=== PATIENT | female | born 1975 | race Caucasian/White ===

== ENCOUNTER 2019-05-30 23:12 | Inpatient (IN) | payer BC, OTHER ==
[2019-05-31] MEDS ORDERED: NA CHLORIDE 0.9% 2,000 ML ONE (00:09)
[2019-05-31] MEDS ORDERED: VANCOMYCIN 1 GM/VIAL ONE (00:09)
[2019-05-31] MEDS ORDERED: MORPHINE 4 MG/ML SYR ONE (00:09)
[2019-05-31] MEDS ORDERED: NA CHLORIDE 0.9% 250 ML ONE ×2 (00:09→03:04)
[2019-05-31] MEDS ORDERED: CEFTRIAXONE/SWI 1gm 1 GM/10 ML SYR ONE (00:09)
[2019-05-31 00:12] LABS: Absolute Lymphocytes (CBC) 0.4 K/uL (0.7-4.9); Basophils % 0.1 % (0-1.3); Hematocrit 35.3 % (36.0-45.0); Lymphocytes % 3.1 % (15.3-44.8); MPV 8.6 fL (7.6-11.3); RBC Red Blood Cell Count 4.35 M/uL (3.86-4.86)
[2019-05-31 00:15] LABS: Protime INR 1.23
[2019-05-31 00:27] LABS: Albumin 3.3 g/dL (3.4-5.0); Bilirubin Direct 0.2 mg/dL (0-0.2); Bilirubin Total 0.6 mg/dL (0.2-1.0); Potassium 3.1 mmol/L (3.5-5.1); Protein, Total 7.4 g/dL (6.4-8.2)
[2019-05-31] MEDS ORDERED: POTASSIUM 25 MEQ EFFERV TAB ONE (00:34)
[2019-05-31] MEDS ORDERED: ENOXAPARIN 40 MG/0.4 ML SQ ONE (00:34)
[2019-05-31] MEDS ORDERED: MORPHINE 4 MG/ML SYR IV PRN (00:35)
[2019-05-31] MEDS ORDERED: ONDANSETRON 4 MG/2 ML VIAL IV PRN (00:35)
[2019-05-31] MEDS ORDERED: ENOXAPARIN 100 MG/ML SYR SQ ONE (00:36)
--- NOTE | 2019-05-31 00:38 | ER ---
Nurse's Notes [facility] Name: Munira Kim Age: 43 yrs Sex: Female : 1975 Arrival Date: 05/30/2019 Time: 23:17 Bed 23 Private MD: Imelda Pitmtan R Diagnosis: Cellulitis of left lower limb;Lymphedema, not elsewhere classified;Hypokalemia Presentation: 05/30 23:39 Presenting complaint: Patient states: I HAVE LYMPH EDEMA AND I GET CELLULITIS EVERY rv ONCE IN A WHILE. COUPLE OF WEEKS AGO I GOT A SHOT FROM A DOCTOR'S CLINIC AND IT GOT BETTER. TODAY I WOKE UP NOT FEELING GOOD, LEFT LEG IS RED AND SWOLLEN, HAVING FEVER ALL DAY. Transition of care: patient was not received from another setting of care. Onset of symptoms was May 30, 2019 at 08:00. Risk Assessment: Do you want to hurt yourself or someone else? Patient reports no desire to harm self or others. Initial Sepsis Screen: Does the patient meet any 2 criteria? No. Patient's initial sepsis screen is negative. Does the patient have a suspected source of infection? No. Patient's initial sepsis screen is negative. Care prior to arrival: None. 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 - Social history:: Smoking status: Patient/guardian denies using tobacco, never smoked. - Ebola Screening: : No symptoms or risks identified at this time. Screenin:43 Abuse screen: Denies threats or abuse. Denies injuries from another. Nutritional rv screening: No deficits noted. Tuberculosis screening: No symptoms or risk factors identified. Fall Risk No fall in past 12 months (0 pts). Secondary diagnosis (15 points) impaired mobility, No IV (0 pts). Ambulatory Aid- None/Bed Rest/Nurse Assist (0 pts). Gait- Impaired (20 pts.). Mental Status- Oriented to own ability (0 pts). Total Talavera Fall Scale indicates No Risk (0-24 pts). Assessment: 23:42 General: Appears in no apparent distress. uncomfortable, Behavior is calm, cooperative. rv Pain: Complains of pain in left LOWER LEG Pain radiates to LEFT THIGH. Neuro: Level of Consciousness is awake, alert, obeys commands, Oriented to person, place, time, situation, Cardiovascular: Patient's skin is warm and dry. Respiratory: Airway is patent. GI: No signs and/or symptoms were reported involving the gastrointestinal system. : No signs and/or symptoms were reported regarding the genitourinary system. EENT: No signs and/or symptoms were reported regarding the EENT system. Derm: Skin temperature is warm. Musculoskeletal: Swelling present in left leg. Vital Signs: 23:41 BP 110 / 77; Pulse 100; Resp 18; Temp 99.8; Pulse Ox 100% ; Weight 117.93 kg; Height 5 rv ft. 7 in. (170.18 cm); 05/31 00:30 BP 112 / 61; Pulse 95; Resp 16; Pulse Ox 100% on R/A; rv 01:51 BP 108 / 49; Pulse 96; Resp 17; Pulse Ox 100% on R/A; rv 05/30 23:41 Body Mass Index 40.72 (117.93 kg, 170.18 cm) rv ED Course: 05/30 23:17 Patient arrived in ED. es 23:17 Imelda Pittman MD is Private Physician. es 23:22 [facility] Hall [facility]C [facility]. snw 23:22 Sung Lynch MD is Attending Physician. snw 23:30 Edmond Corado RN is Primary Nurse. rv 23:41 Triage completed. rv 23:46 Patient has correct armband on for positive identification. Placed in gown. Bed in low rv position. Call light in reach. Side rails up X 1. Adult w/ patient. Pulse ox on. NIBP on. 23:46 Patient placed in the treatment room, on a stretcher, on pulse oximetry, Patient rv notified of wait time. 23:55 Inserted saline lock: 20 gauge in right antecubital area, using aseptic technique. rv Blood collected. 23:55 Initial lab(s) drawn, by me, sent to lab. First set of blood cultures drawn by me. rv 05/31 00:13 Chest Single View XRAY In Process Unspecified. EDMS 00:20 Second set of blood cultures drawn by me. rv 00:36 Kerwni Mendoza MD is Hospitalizing Provider. snw 01:52 No provider procedures requiring assistance completed. Patient admitted, IV remains in rv place. Administered Medications: 00:20 Drug: Rocephin 1 grams Route: IV; Rate: calculated rate; Site: right antecubital; rv 00:26 Follow up: IV Status: Completed infusion rv 00:25 Drug: NS 0.9% 1000 ml Route: IV; Rate: 125 ml/hr; Site: right antecubital; rv 01:53 Follow up: IV Status: IV converted to saline lock rv 00:25 Drug: morphine 4 mg {Note: RASS 0.} Route: IVP; Site: right antecubital; rv 01:07 Follow up: Response: No adverse reaction rv 01:09 Follow up: Response: RASS: Alert and Calm (0) rv 00:26 Drug: vancoMYCIN 1 grams Route: IVPB; Infused Over: 2 hrs; Site: right antecubital; rv 01:53 Follow up: IV Status: Completed infusion rv 00:26 Drug: NS 0.9% 1000 ml Route: IV; Rate: 1000 ml; Site: right antecubital; rv 01:53 Follow up: IV Status: Completed infusion rv 00:35 CANCELLED (other intervention used): Lovenox 40 mg Sub-Q once snw 00:40 Drug: Lovenox 100 mg Route: Sub-Q; Site: right lower abdomen; rv 01:06 Follow up: Response: No adverse reaction rv 00:41 Drug: Potassium Effervescent Tablet 50 mEq Route: PO; rv 01:07 Follow up: Response: No adverse reaction rv Outcome: 00:37 Decision to Hospitalize by Provider. snw 01:52 Admitted to Tele accompanied by tech, via wheelchair, room 420, Report called to HARDEEP jones RN 01:52 Condition: good 01:52 Instructed on the need for admit. 01:54 Patient left the ED. rv Signatures: Dispatcher [employer] Malorie Myles FNP-C WORKPLACE REHABILITATION OFFICER-Csnw Hiral Strong Ronaldo, RN RN rv
--- NOTE | 2019-05-31 00:38 | EDPHYS ---
Physician Documentation [facility] Name: Munira Kim Age: 43 yrs Sex: Female : 1975 Arrival Date: 05/30/2019 Time: 23:17 Bed 23 Private MD: Imelda Pittman R ED Physician Sung Lynch HPI: 05/30 23:51 This 43 yrs old Female presents to ER via Ambulatory with complaints of Leg snw Pain. 23:51 The patient presents with pain, swelling, redness. The complaints affect the lateral snw aspect of left calf, left calf, medial aspect of left calf, left quadriceps, left knee and left nelson. Context: The problem was sustained at home, resulted from hx of lymphedema, redness to left leg, the patient can fully bear weight, the patient is able to ambulate. Onset: The symptoms/episode began/occurred suddenly, today. Associated signs and symptoms: Pertinent positives: low grade fever, pain, redness today. Severity of symptoms: At their worst the symptoms were moderate. The patient has experienced a previous episode, last month. The patient has been recently seen by a physician: the patient's primary care provider, Dr. Pinzon. 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 - Social history:: Smoking status: Patient/guardian denies using tobacco, never smoked. - Ebola Screening: : No symptoms or risks identified at this time. ROS: 23:49 Constitutional: Negative for fever, chills, and weight loss, Eyes: Negative for injury, snw pain, redness, and discharge, ENT: Negative for injury, pain, and discharge, Neck: Negative for injury, pain, and swelling, Cardiovascular: Negative for chest pain, palpitations, and edema, Respiratory: Negative for shortness of breath, cough, wheezing, and pleuritic chest pain, Abdomen/GI: Negative for abdominal pain, nausea, vomiting, diarrhea, and constipation, Back: Negative for injury and pain, : Negative for injury, bleeding, discharge, and swelling, Skin: Negative for injury, rash, and discoloration, Neuro: Negative for headache, weakness, numbness, tingling, and seizure. 23:49 MS/extremity: Positive for erythema, tenderness, of the left leg. Exam: 23:48 Head/Face: Normocephalic, atraumatic. Eyes: Pupils equal round and reactive to light, snw extra-ocular motions intact. Lids and lashes normal. Conjunctiva and sclera are non-icteric and not injected. Cornea within normal limits. Periorbital areas with no swelling, redness, or edema. ENT: Nares patent. No nasal discharge, no septal abnormalities noted. Tympanic membranes are normal and external auditory canals are clear. Oropharynx with no redness, swelling, or masses, exudates, or evidence of obstruction, uvula midline. Mucous membranes moist. Neck: Trachea midline, no thyromegaly or masses palpated, and no cervical lymphadenopathy. Supple, full range of motion without nuchal rigidity, or vertebral point tenderness. No Meningismus. Chest/axilla: Normal chest wall appearance and motion. Nontender with no deformity. No lesions are appreciated. 23:48 Respiratory: Lungs have equal breath sounds bilaterally, clear to auscultation and percussion. No rales, rhonchi or wheezes noted. No increased work of breathing, no retractions or nasal flaring. Abdomen/GI: Soft, non-tender, with normal bowel sounds. No distension or tympany. No guarding or rebound. No evidence of tenderness throughout. Back: No spinal tenderness. No costovertebral tenderness. Full range of motion. MS/ Extremity: Pulses equal, no cyanosis. Neurovascular intact. Full, normal range of motion. Neuro: Awake and alert, GCS 15, oriented to person, place, time, and situation. Cranial nerves II-XII grossly intact. Motor strength 5/5 in all extremities. Sensory grossly intact. Cerebellar exam normal. Normal gait. Psych: Awake, alert, with orientation to person, place and time. Behavior, mood, and affect are within normal limits. 23:48 Constitutional: The patient appears alert, awake, uncomfortable. 23:48 Cardiovascular: Rate: tachycardic, Rhythm: regular, Pulses: no pulse deficits are appreciated, lymphedema bilateral lower ext. 23:48 Skin: Appearance: normal except for affected area, Color: normal in color, cellulitis, that is moderate, that is severe, well demarcated, on the left leg. Vital Signs: 23:41 BP 110 / 77; Pulse 100; Resp 18; Temp 99.8; Pulse Ox 100% ; Weight 117.93 kg; Height 5 rv ft. 7 in. (170.18 cm); 05/31 00:30 BP 112 / 61; Pulse 95; Resp 16; Pulse Ox 100% on R/A; rv 01:51 BP 108 / 49; Pulse 96; Resp 17; Pulse Ox 100% on R/A; rv 05/30 23:41 Body Mass Index 40.72 (117.93 kg, 170.18 cm) rv MDM: 05/30 23:25 Patient medically screened. [facility] [place] 23:50 Data reviewed: vital signs, nurses notes. Data interpreted: Pulse oximetry: on room air snw is 100 %. Interpretation: normal. Counseling: I had a detailed discussion with the patient and/or guardian regarding: the historical points, exam findings, and any diagnostic results supporting the discharge/admit diagnosis, lab results, radiology results, the need for further work-up and treatment in the hospital. 05/31 00:31 Physician consultation: Kerwin Mendoza MD was called at 00:31, was contacted at 00:31, snw regarding admission, to the telemetry unit. 05/30 23:44 Order name: Sed Rate; Complete Time: 01:50 snw 05/30 23:44 Order name: T\T\S; Complete Time: 01:49 snw 05/30 23:44 Order name: Basic Metabolic Panel; Complete Time: 00:28 snw 05/30 23:44 Order name: Blood Culture Adult (2) snw 05/30 23:44 Order name: CBC with Diff; Complete Time: 01:50 snw 05/30 23:44 Order name: CPK; Complete Time: 00:28 snw 05/30 23:44 Order name: Lactate; Complete Time: 00:28 snw 05/30 23:44 Order name: LFT's; Complete Time: 00:28 snw 05/30 23:44 Order name: Procalcitonin; Complete Time: 01:16 snw 05/30 23:44 Order name: Protime (+inr); Complete Time: 00:28 snw 05/30 23:44 Order name: Ptt, Activated; Complete Time: 00:28 snw 05/31 00:17 Order name: Glucose, Ancillary Testing; Complete Time: 00:21 EDMS 05/31 00:28 Order name: Manual Differential; Complete Time: 01:50 EDMS 05/31 00:31 Order name: Urine Dipstick--Ancillary (enter results); Complete Time: 01:49 cm6 05/30 23:44 Order name: Chest Single View XRAY snw 05/31 00:39 Order name: CBC with Automated Diff EDMS 05/31 00:39 Order name: CBC with Automated Diff EDMS 05/31 00:40 Order name: Comprehensive Metabolic Panel EDMS 05/31 00:40 Order name: Comprehensive Metabolic Panel EDMS 05/31 00:40 Order name: Protime (+INR) EDMS 05/31 00:40 Order name: Protime (+INR) EDMS 05/31 00:40 Order name: PTT, Activated Partial Thromb EDMS 05/31 00:40 Order name: PTT, Activated Partial Thromb EDMS 05/31 00:40 Order name: Extrem Venous W Compress Reagan EDMS 05/31 00:40 Order name: Extrem Venous W Compress Reagan EDMS 05/30 23:44 Order name: Accucheck; Complete Time: 00:03 snw 05/30 23:44 Order name: Cardiac monitoring; Complete Time: 00:03 snw 05/30 23:44 Order name: EKG - Nurse/Tech; Complete Time: 00:03 snw 05/30 23:44 Order name: IV Saline Lock - Large Bore; Complete Time: 00:03 snw 05/30 23:44 Order name: Labs collected and sent; Complete Time: 00:03 snw 05/30 23:44 Order name: O2 Per Protocol; Complete Time: 00:03 snw 05/30 23:44 Order name: O2 Sat Monitoring; Complete Time: 00:03 snw 05/30 23:44 Order name: Urine Dipstick-Ancillary (obtain specimen); Complete Time: 01:10 snw 05/31 00:39 Order name: CONS Pharmacy Consult EDMS 05/31 00:39 Order name: Heart Healthy EDMS Administered Medications: 00:20 Drug: Rocephin 1 grams Route: IV; Rate: calculated rate; Site: right antecubital; rv 00:26 Follow up: IV Status: Completed infusion rv 00:25 Drug: NS 0.9% 1000 ml Route: IV; Rate: 125 ml/hr; Site: right antecubital; rv 01:53 Follow up: IV Status: IV converted to saline lock rv 00:25 Drug: morphine 4 mg {Note: RASS 0.} Route: IVP; Site: right antecubital; rv 01:07 Follow up: Response: No adverse reaction rv 01:09 Follow up: Response: RASS: Alert and Calm (0) rv 00:26 Drug: vancoMYCIN 1 grams Route: IVPB; Infused Over: 2 hrs; Site: right antecubital; rv 01:53 Follow up: IV Status: Completed infusion rv 00:26 Drug: NS 0.9% 1000 ml Route: IV; Rate: 1000 ml; Site: right antecubital; rv 01:53 Follow up: IV Status: Completed infusion rv 00:35 CANCELLED (other intervention used): Lovenox 40 mg Sub-Q once snw 00:40 Drug: Lovenox 100 mg Route: Sub-Q; Site: right lower abdomen; rv 01:06 Follow up: Response: No adverse reaction rv 00:41 Drug: Potassium Effervescent Tablet 50 mEq Route: PO; rv 01:07 Follow up: Response: No adverse reaction rv Disposition: 05/31/19 00:37 Hospitalization ordered by Kerwin Mendoza for Inpatient Admission. Preliminary diagnosis are Cellulitis of left lower limb, Lymphedema, not elsewhere classified, Hypokalemia. - Bed requested for Telemetry/MedSurg (Inpatient). - Status is Inpatient Admission. rv - Condition is Stable. - Problem is new. - Symptoms have worsened. UTI on Admission? No Addendum: 06/01/2019 08:57 Co-signature as Attending Physician, Sung Lynch MD I agree with the assessment and c palma plan of care. Signatures: Dispatcher [employer] Sung Sylvester MD MD cha Therrien, Shelly, MOLD CLEANER-C MOLD CLEANER-Quinnw Elvia Storm, RN RN Edmond Corado RN RN rv Corrections: (The following items were deleted from the chart) 05/31 00:35 00:31 Lovenox 40 mg Sub-Q once ordered. snw snw 00:35 00:35 Lovenox 40 mg Sub-Q once ordered. snw snw 01:36 00:37 Hospitalization Ordered by Kerwin Mendoza MD for Inpatient Admission. Preliminary cg diagnosis is Cellulitis of left lower limb; Lymphedema, not elsewhere classified; Hypokalemia. Bed requested for Telemetry/MedSurg (Inpatient). Status is Inpatient Admission. Condition is Stable. Problem is new. Symptoms have worsened. UTI on Admission? No. snw 01:38 01:36 05/31/2019 00:37 Hospitalization Ordered by Kerwin Mendoza MD for Inpatient cg Admission. Preliminary diagnosis is Cellulitis of left lower limb; Lymphedema, not elsewhere classified; Hypokalemia. Bed requested for Telemetry/MedSurg (Inpatient). Status is Inpatient Admission. Condition is Stable. Problem is new. Symptoms have worsened. UTI on Admission? No. cg 01:54 01:38 05/31/2019 00:37 Hospitalization Ordered by Kerwin Mendoza MD for Inpatient rv Admission. Preliminary diagnosis is Cellulitis of left lower limb; Lymphedema, not elsewhere classified; Hypokalemia. Bed requested for Telemetry/MedSurg (Inpatient). Status is Inpatient Admission. Condition is Stable. Problem is new. Symptoms have worsened. UTI on Admission? No. cg
[2019-05-31 01:48] LABS: Urine Blood NEGATIVE (NEG); Urine Glucose NEGATIVE (NEG); Urine Protein 2+ (NEG)
[2019-05-31 01:50] LABS: Blood Morphology Comment NOT SEEN (NOT SEEN); Platelet Estimate ADEQ
[2019-05-31 02:30] VITALS: BMI 40.4
[2019-05-31] MEDS ORDERED: VANCOMYCIN/NS 1 gm 1 GM/250 ML BAG IVPB SCH ×2 (02:45→03:00)
[2019-05-31] MEDS ORDERED: VANCOMYCIN 500 MG/VIAL ONE (03:03)
[2019-05-31] MEDS ORDERED: WATER FOR INJ,STERILE 10 ML ONE (03:05)
[2019-05-31] MEDS: VANCOMYCIN 500 MG/VIAL ONE ×3 (03:18→03:19)
[2019-05-31] MEDS: WATER FOR INJ,STERILE 10 ML ONE (03:18)
[2019-05-31] MEDS: NA CHLORIDE 0.9% 1,000 ML IV SCH ×3 (03:18→21:45)
[2019-05-31] MEDS ORDERED: AMPICILLIN/SULBACT 3 GM in NA CHLORIDE 0.9% 100 ML IVPB SCH ×2 (06:00→12:00)
[2019-05-31] MEDS ORDERED: AMPICILLIN/SULBACTAM 3GM/VIAL ONE (06:16)
[2019-05-31] MEDS ORDERED: NA CHLORIDE 0.9% 100 ML IV ONE (06:25)
--- NOTE | 2019-05-31 07:19 | P.HP ---
Certification for Inpatient Patient admitted to: Inpatient With expected LOS: >2 Midnights Patient will require the following post-hospital care: None Practitioner: I am a practitioner with admitting privileges, knowledge of patient current condition, hospital course, and medical plan of care. Services: Services provided to patient in accordance with Admission requirements found in Title 42 Section 412.3 of the Code of Federal Regulations Patient History Date of Service: 05/31/19 Reason for admission: Cellulitis History of Present Illness: Pt is a 43yo who was admitted to the hospital with cellulitis of the left lower extremity. Pt has a h/o of lymphedema. she has had prior cellulitis of the left leg but she has not had this happen in many years. She woke up with significant erythema and came to the ER. In the emergency room, it was felt she had a cellulitis of the left lower extremity. Plan to get a Doppler in the morning. She was given Lovenox last night, and depending on the Doppler study will see if we need to just continue with DVT prophylaxis or full-dose Lovenox. Patient will be admitted for IV antibiotic therapy. Allergies meperidine HCl [From Demerol] Adverse Reaction (Verified 01/23/13 18:35) Nausea/Vomiting Home Medications: Amitriptyline [Elavil*] 100 mg PO DAILY 05/31/19 Triamterene/Hydrochlorothiazid [Triamterene-Hctz 37.5-25 mg Tb] 1 tab PO DAILY 05/31/19 - Past Medical/Surgical History Has patient received pneumonia vaccine in the past: No Diabetic: No -: lymphedema -: cholecystectomy -: weight loss sx - Family History Father Medical History: Heart disease, Stroke Mother Medical History: Heart disease, Hypertension Sister Medical History: Heart disease - Social History Smoking Status: Never smoker Alcohol use: Yes CD- Drugs: No Caffeine use: Yes Place of Residence: Home Review of Systems 10-point ROS is otherwise unremarkable Physical Examination - Vital Signs Temperature: 97.9 F Blood Pressure: 97/50 Pulse: 94 Respirations: 18 Pulse Ox (%): 95 - Physical Exam General: Alert, In no apparent distress, Oriented x3 HEENT: Atraumatic, PERRLA, Mucous membr. moist/pink, EOMI, Sclerae nonicteric Neck: Supple, 2+ carotid pulse no bruit, No LAD, Without JVD or thyroid abnormality Respiratory: Clear to auscultation bilaterally, Normal air movement Cardiovascular: Regular rate/rhythm, Normal S1 S2 Gastrointestinal: Normal bowel sounds, Soft and benign, Non-distended, No tenderness Musculoskeletal: Swelling, Erythema, Tenderness Integumentary: No rashes, Tenderness/swelling, Erythema, Warmth Neurological: Normal gait, Normal speech, Normal strength at 5/5 x4 extr, Normal tone, Sensation intact, Cranial nerves 3-12 intact, Normal affect Lymphatics: No axilla or inguinal lymphadenopathy - Studies Laboratory Data (last 24 hrs) 05/30/19 23:55: PT 14.4 H, INR 1.23, APTT 29.0 05/30/19 23:55: Sodium 134 L, Potassium 3.1 L, BUN 13, Creatinine 0.99, Glucose 126 H, Total Bilirubin 0.6, AST 23, ALT 23, Alkaline Phosphatase 76 05/30/19 23:55: WBC 14.0 H, Hgb 11.5 L, Hct 35.3 L, Plt Count 160 Assessment & Plan - Problems (Diagnosis) (1) Lymphedema Current Visit: Yes Status: Acute (2) Cellulitis of left lower extremity Current Visit: Yes Status: Acute - Plan 1. Continue with IV antibiotic 2. Treat with anti-inflammatory as well 3. Doppler of the left lower extremity to rule out DVT 4. Gentle IV hydration 5. Monitor CBC 6. Strict blood sugar monitoring 7. Pain control 8. GI and DVT prophylaxis Discharge Plan: Home Plan to discharge in: Greater than 2 days - Advance Directives Does patient have a Living Will: No Does patient have a Durable POA for Healthcare: No - Code Status/Comfort Care Code Status Assessed: Yes Code Status: Full Code Critical Care: No Time Spent Managing PTS Care (In Minutes): 45
[2019-05-31] MEDS ORDERED: NA CHLORIDE 0.9% 250 ML IV PRN (07:49)
[2019-05-31] MEDS ORDERED: NA CHLORIDE 0.9% 250 ML IV ONE (07:50)
[2019-05-31] MEDS ORDERED: HYDROCORTISONE SUC 100 MG INJ IV ONE (08:00)
[2019-05-31] MEDS: ACETAMINOPHEN 500 MG TAB PO PRN ×2 (08:19→17:54)
[2019-05-31] MEDS ORDERED: HYDROCODONE/APAP 5/325 MG TAB PO PRN (10:44)
--- NOTE | 2019-05-31 10:47 | P.PN ---
Subjective Date of Service: 05/31/19 Chief Complaint: Cellulitis Subjective: Improving (Patient is improving still having some pain and swelling redness in the left leg) Review of Systems Unremarkable Physical Examination - Vital Signs Temperature: 97.9 F Blood Pressure: 97/50 Pulse: 94 Respirations: 18 Pulse Ox (%): 95 - Physical Exam General: Alert, In no apparent distress, Oriented x3 Respiratory: Clear to auscultation bilaterally Cardiovascular: Edema Integumentary: Other (Patient has redness and swelling of the left leg patient has lymphedema the erythema extends above the left) - Studies Laboratory Data (last 24 hrs) 05/30/19 23:55: PT 14.4 H, INR 1.23, APTT 29.0 05/30/19 23:55: Sodium 134 L, Potassium 3.1 L, BUN 13, Creatinine 0.99, Glucose 126 H, Total Bilirubin 0.6, AST 23, ALT 23, Alkaline Phosphatase 76 05/30/19 23:55: WBC 14.0 H, Hgb 11.5 L, Hct 35.3 L, Plt Count 160 Assessment & Plan - Problems (Diagnosis) (1) Cellulitis of left lower extremity Current Visit: Yes Status: Acute Plan: Patient admitted with cellulitis of the left lower extremity blood cultures are pending change to Rocephin continue with vancomycin leg elevation hydrocodone for pain relief consider discharge home on clindamycin 1 stable in the white count is declining slightly low blood pressure you with IV fluids
--- NOTE | 2019-05-31 11:05 | RAD REPORT ---
EXAM DESCRIPTION: RAD - Chest Single View - 05/31/2019 12:05 am CLINICAL HISTORY: FEVER Chest pain. COMPARISON: No comparisons FINDINGS: Portable technique limits examination quality. Calcified granuloma is seen in the left mid lung. The lungs are otherwise clear. The heart is normal in size. No displaced fractures.Axillary node dissection clips are present. IMPRESSION: No acute intrathoracic process suspected.
[2019-05-31] MEDS: CEFTRIAXONE/SWI 1gm 1 GM/10 ML SYR IVP SCH (11:53)
[2019-05-31] MEDS ORDERED: VANCOMYCIN 2 GM in NA CHLORIDE 0.9% 500 ML IVPB SCH (13:00)
[2019-05-31] MEDS: VANCOMYCIN 2 GM in NA CHLORIDE 0.9% 500 ML IVPB SCH (13:27)
--- NOTE | 2019-05-31 19:45 | RAD REPORT ---
EXAM DESCRIPTION: US - Extrem Venous W Compress Reagan - 05/31/2019 7:32 pm CLINICAL HISTORY: DVT Bilateral leg edema and swelling. COMPARISON: No comparisons TECHNIQUE: Real-time sonographic interrogation of the left and right lower extremity deep venous sys tems was performed. FINDINGS: Normal compressibility, flow augmentation, phasic flow and spontaneous flow is identified in both the left and right lower extremity deep venous systems. IMPRESSION: No sonographic evidence of left or right lower extremity deep venous thrombosis.
--- NOTE | 2019-05-31 19:53 | EKG ---
Test Date: 2019-05-31 Test Time: 00:02:37 Epic Analyst: TELMAT MEASUREMENT RESULTS: Intervals: Rate: 97 RI: 132 QRSD: 84 QT: 340 QTc: 431 [place]: P: 49 RI: 132 QRS: 50 T: 48 INTERPRETIVE STATEMENTS: Normal sinus rhythm Normal ECG No previous ECG available for comparison Electronically Signed On 05-31-19 19:52:47 CDT by Vasile Mcclain
[2019-06-01] MEDS: NA CHLORIDE 0.9% 1,000 ML IV SCH (03:40)
[2019-06-01 06:02] LABS: Absolute Lymphocytes (CBC) 0.7 K/uL (0.7-4.9); Basophils % 0.2 % (0-1.3); Hematocrit 29.5 % (36.0-45.0); Lymphocytes % 11.9 % (15.3-44.8)
[2019-06-01 06:12] LABS: Protime INR 1.04
[2019-06-01] MEDS: VANCOMYCIN 2 GM in NA CHLORIDE 0.9% 500 ML IVPB SCH (06:21)
[2019-06-01 06:25] LABS: Albumin 2.5 g/dL (3.4-5.0); Bilirubin Total 0.3 mg/dL (0.2-1.0); Potassium 3.3 mmol/L (3.5-5.1); Protein, Total 6.1 g/dL (6.4-8.2)
[2019-06-01] MEDS: AMITRIPTYLINE 50 MG TAB PO SCH (08:05)
[2019-06-01] MEDS: CEFTRIAXONE/SWI 1gm 1 GM/10 ML SYR IVP SCH (08:06)
[2019-06-01] MEDS ORDERED: CEFTRIAXONE 1 GM/NS 50 ML 1 GM/50 ML BAG IV SCH (09:00)
--- NOTE | 2019-06-01 10:54 | P.PN ---
Subjective Date of Service: 06/01/19 Primary Care Provider: Dr. Santo Chief Complaint: Cellulitis Subjective: Improving (Cellulitis to the left lower extremity improved.) Physical Examination - Vital Signs Temperature: 97.4 F Blood Pressure: 95/67 Pulse: 76 Respirations: 20 Pulse Ox (%): 98 - Physical Exam General: Alert, In no apparent distress, Oriented x3, Cooperative HEENT: Atraumatic Neck: Supple Respiratory: Clear to auscultation bilaterally, Normal air movement Cardiovascular: Normal pulses, Regular rate/rhythm Gastrointestinal: Normal bowel sounds, Soft and benign, Non-distended, No tenderness, No masses, No rebound, No guarding Integumentary: Other (Erythema to the left lower extremity below the knee improved. Chronic lymphedema noted bilateral.) Neurological: Normal speech, Normal strength at 5/5 x4 extr, Normal tone, Normal affect - Studies Medications List Reviewed: Yes Assessment & Plan Discharge Plan: Home Plan to discharge in: 24 Hours Physician Review Additional Text: Impression: Left lower extremity cellulitis with chronic lymphedema Acute renal injury with hypokalemia Anemia likely of chronic disease Obesity, BMI 40 Plan: Left lower extremity cellulitis with chronic lymphedema: Will continue with IV antibiotic therapy. Cellulitis has improved. Patient with chronic lymphedema. Patient would benefit with compression stockings as an outpatient. Will recommend evaluation by lymphedema clinic as an outpatient. Anticipate discharge in the next 24-48 hr. with clinical improvement. I will turn the service over to Dr. Hernandez tomorrow. I will go over the plan of care with her. Acute renal injury with hypokalemia: Dc IV fluids. His renal function is back to baseline. Continue to monitor closely. Electrolyte protocol in place. Anemia likely of chronic disease: Will check iron and B12 studies. Will monitor closely. Obesity, BMI 40: Lifestyle modification education provided. Time Spent Managing Pts Care (In Minutes): 55
[2019-06-01 12:26] LABS: Ferritin 78.2 ng/mL (8-388)
[2019-06-01] MEDS ORDERED: ENOXAPARIN 40 MG/0.4 ML SQ SCH (17:00)
[2019-06-02] MEDS: VANCOMYCIN 2 GM in NA CHLORIDE 0.9% 500 ML IVPB SCH (01:34)
[2019-06-02 06:26] LABS: Absolute Lymphocytes (CBC) 1.1 K/uL (0.7-4.9); Basophils % 0.3 % (0-1.3); Hematocrit 28.7 % (36.0-45.0); MPV 8.5 fL (7.6-11.3); RBC Red Blood Cell Count 3.47 M/uL (3.86-4.86)
[2019-06-02 06:37] LABS: BUN Blood Urea Nitrogen 9 mg/dL (7-18); Bicarbonate 28 mmol/L (21-32); Glucose Level 81 mg/dL (74-106); Potassium 3.6 mmol/L (3.5-5.1); Sodium Level 142 mmol/L (136-145)
[2019-06-02] MEDS: AMITRIPTYLINE 50 MG TAB PO SCH (09:22)
[2019-06-02] MEDS: CEFTRIAXONE/SWI 1gm 1 GM/10 ML SYR IVP SCH (09:22)
[2019-06-02 09:30] VITALS: O2SAT 100
--- NOTE | 2019-06-02 16:09 | P.DS ---
Admission Date: 05/31/19 Discharge Date: 06/02/19 Primary Care Provider: Dr. Santo Disposition: ROUTINE DISCHARGE Discharge Condition: GOOD Reason for Admission: Cellulitis - Problems (1) Cellulitis of left lower extremity Current Visit: Yes Status: Acute (2) Lymphedema Current Visit: Yes Status: Acute Brief History of Present Illness: Pt is a 43yo who was admitted to the hospital with cellulitis of the left lower extremity. Pt has a h/o of lymphedema. she has had prior cellulitis of the left leg but she has not had this happen in many years. She woke up with significant erythema and came to the ER. In the emergency room, it was felt she had a cellulitis of the left lower extremity. Plan to get a Doppler in the morning. She was given Lovenox last night, and depending on the Doppler study will see if we need to just continue with DVT prophylaxis or full-dose Lovenox. Patient will be admitted for IV antibiotic therapy. Hospital Course: Overall during the hospital stay patient remained stable. Patient was admitted to the hospital for left lower extremity cellulitis most likely secondary to lymphedema chronic. Patient was started on IV antibiotics here in the hospital. Had marked improvement in her symptoms. Patient is felt like was also elevated. Cultures were collected. Cultures remained negative while here in the hospital. Patient cellulitis also had marked improvement and thus she was discharged home under stable condition on p.o. doxycycline. Patient was asked to follow up with lymphedema clinic in about 1-2 days post discharge. Patient was also asked to wear lymphedema stockings to help with the swelling as well. Patient demonstrate understanding and thus she was discharged home under stable condition Vital Signs/Physical Exam: Temp Pulse Resp BP Pulse Ox 97.7 F 91 H 20 109/63 99 06/02/19 12:00 06/02/19 12:00 06/02/19 12:00 06/02/19 12:00 06/02/19 12:00 General: Alert, In no apparent distress HEENT: Atraumatic, PERRLA, EOMI Neck: Supple, JVD not distended Respiratory: Clear to auscultation bilaterally, Normal air movement Cardiovascular: Regular rate/rhythm, Normal S1 S2 Gastrointestinal: Normal bowel sounds, No tenderness Musculoskeletal: Swelling, Erythema, Tenderness Integumentary: No rashes Neurological: Normal speech, Normal tone, Normal affect Lymphatics: No axilla or inguinal lymphadenopathy Laboratory Data at Discharge: WBC 4.8 K/uL (4.3-10.9) D 06/02/19 05:54 Hgb 9.4 g/dL (12.0-15.0) L 06/02/19 05:54 Hct 28.7 % (36.0-45.0) L 06/02/19 05:54 Plt Count 159 K/uL (152-406) 06/02/19 05:54 PT 12.2 SECONDS (9.5-12.5) 06/01/19 05:30 INR 1.04 06/01/19 05:30 APTT 28.3 SECONDS (24.3-36.9) 06/01/19 05:30 Sodium 142 mmol/L (136-145) 06/02/19 05:54 Potassium 3.6 mmol/L (3.5-5.1) 06/02/19 05:54 BUN 9 mg/dL (7-18) 06/02/19 05:54 Creatinine 0.69 mg/dL (0.55-1.3) 06/02/19 05:54 Glucose 81 mg/dL (74-106) 06/02/19 05:54 Magnesium 2.0 mg/dL (1.8-2.4) 06/02/19 05:54 Total Bilirubin 0.3 mg/dL (0.2-1.0) 06/01/19 05:30 AST 14 U/L (15-37) L 06/01/19 05:30 ALT 19 U/L (12-78) 06/01/19 05:30 Alkaline Phosphatase 67 U/L (45-117) 06/01/19 05:30 Home Medications: Amitriptyline [Elavil*] 100 mg PO DAILY 05/31/19 Triamterene/Hydrochlorothiazid [Triamterene-Hctz 37.5-25 mg Tb] 1 tab PO DAILY 05/31/19 Doxycycline Monohydrate 100 mg PO BID #28 tablet 06/02/19 New Medications: Doxycycline Monohydrate 100 mg PO BID #28 tablet Patient Discharge Instructions: Please f.u with Lymphedema clinic in 1 to 2 week post discharge. New medication. Doxycycline 100mg BID Diet: Regular Activity: Ad gordo
[2019-06-02 17:08] VITALS: BP 109/66; TEMP 98.1
== END 2019-06-02 16:03 | disposition home or self-care (01) | DRG 603 ==
LOC: ER 23:12 → ERHOLD 05-31 00:35 → 4TH 05-31 01:45
PROVIDERS: ADMIT Hospitalist; ATTEND Hospitalist
DX: L03.116 Cellulitis of left lower limb (principal); N17.9 Acute kidney failure, unspecified; Z68.41 Body mass index [BMI] 40.0-44.9, adult; I89.0 Lymphedema, not elsewhere classified; E87.6 Hypokalemia; D64.9 Anemia, unspecified; E66.9 Obesity, unspecified
CPT/HCPCS: 36415; 71045; 80048; 80053; 80076; 80202; 81003; 82550; 82607; 82728; 82947; 83540; 83605; 83735; 84145; 84466; 85025; 85610; 85652; 85730; 86850; 86900; 86901; 87040; 93005; 93970; 96365; 96372; 96375; 97116; 97161; 99285; J0295; J0696; J1650; J1720; J3370; J7030; J7040

== ENCOUNTER 2019-06-12 10:35 | Observation (INO) | payer OTHER ==
[2019-06-12 11:46] LABS: Absolute Lymphocytes (CBC) 1.4 K/uL (0.7-4.9); Basophils % 0.5 % (0-1.3); Hematocrit 34.4 % (36.0-45.0); Lymphocytes % 20.4 % (15.3-44.8); MPV 8.1 fL (7.6-11.3); RBC Red Blood Cell Count 4.22 M/uL (3.86-4.86)
[2019-06-12 12:23] LABS: Albumin 3.6 g/dL (3.4-5.0); Bilirubin Total 0.5 mg/dL (0.2-1.0); Potassium 3.1 mmol/L (3.5-5.1); Protein, Total 8.2 g/dL (6.4-8.2)
--- NOTE | 2019-06-12 13:21 | EDPHYS ---
Physician Documentation [facility] Name: Munira Kim Age: 43 yrs Sex: Female : 1975 Arrival Date: 06/12/2019 Time: 10:37 Bed 16 Private MD: Imelda Pittman R ED Physician Sung Lynch HPI: 06/12 11:06 This 43 yrs old Female presents to ER via Wheelchair with complaints of Leg jmm Swelling. 11:06 The patient presents with pain, that is acute, swelling. Onset: The symptoms/episode jmm began/occurred today. Modifying factors: The symptoms are alleviated by nothing. the symptoms are aggravated by nothing. This is a 43 year old female with a history of lymphedema that presents to the ED with complaints of left lower extremity swelling and redness beginning this morning. Patient discharged from hospital with cellulitis approx 1 week ago. Patient sent home with doxycycline. Erythema began today. . 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 - Social history:: Smoking status: . - Ebola Screening: : Patient denies travel to an Ebola-affected area in the 21 days before illness onset. ROS: 11:06 Constitutional: Negative for fever, chills, and weight loss, Cardiovascular: Negative jmm for chest pain, palpitations, and edema, Respiratory: Negative for shortness of breath, cough, wheezing, and pleuritic chest pain. 11:06 MS/extremity: Positive for erythema, swelling. 11:06 All other systems are negative. Exam: 11:06 Constitutional: This is a well developed, well nourished patient who is awake, alert, jmm and in no acute distress. Head/Face: atraumatic. Eyes: EOMI, no conjunctival erythema appreciated ENT: Moist Mucus Membranes Neck: Trachea midline, Supple Chest/axilla: Normal chest wall appearance and motion. Cardiovascular: Regular rate and rhythm. No edema appreciated Respiratory: Normal respirations, no respiratory distress appreciated Abdomen/GI: Non distended, soft Back: Normal ROM 11:06 Musculoskeletal/extremity: swelling noted to the lower extremities bilaterally, compartments are soft, NVI. 11:06 Skin: erythema and induration appreciated at the left lower extremity. 11:06 Neuro: Orientation: is normal, Mentation: is normal, Memory: is normal. 11:06 Psych: Behavior/mood is pleasant, cooperative. Vital Signs: 11:04 BP 119 / 78; Pulse 84; Resp 16 S; Temp 98.4(O); Pulse Ox 100% on R/A; Weight 117.93 kg aa5 (R); Height 5 ft. 7 in. (170.18 cm) (R); Pain 6/10; 11:38 BP 119 / 78; Pulse 83; Resp 17; Pulse Ox 99% on R/A; tw2 12:49 BP 109 / 73; Pulse 88; Resp 17; Pulse Ox 97% on R/A; tw2 13:37 BP 107 / 71; Pulse 108; Resp 17; Pulse Ox 99% on R/A; tw2 11:04 Body Mass Index 40.72 (117.93 kg, 170.18 cm) aa5 MDM: 11:06 Patient medically screened. olivier 13:19 Data reviewed: vital signs, nurses notes. Counseling: I had a detailed discussion with [facility] the patient and/or guardian regarding: the historical points, exam findings, and any diagnostic results supporting the discharge/admit diagnosis, lab results, the need for further work-up and treatment in the hospital. ED course: I discussed the patient with Dr. Arrieta whom accepted admission. . 06/12 11:21 Order name: CBC with Diff; Complete Time: 12:30 [facility] 06/12 11:21 Order name: CMP; Complete Time: 12:30 [facility] 06/12 11:21 Order name: ESR; Complete Time: 12:30 [facility] 06/12 11:21 Order name: Blood Culture Adult (2) [facility] 06/12 11:21 Order name: Lactate; Complete Time: 12:21 [facility] 06/12 11:21 Order name: Procalcitonin; Complete Time: 12:41 [facility] 06/12 11:21 Order name: Saline Lock; Complete Time: 11:38 [facility] Administered Medications: No medications were administered Disposition: 16:23 Co-signature as Attending Physician, Sung Lynch MD I agree with the assessment and olivier plan of care. Disposition: 06/12/19 13:21 Hospitalization ordered by Blair Arrieta for Observation. Preliminary diagnosis is Cellulitis of left lower limb. - Bed requested for Telemetry/MedSurg (observation). - Status is Observation. tw2 - Condition is Stable. - Problem is an acute exacerbation. - Symptoms are unchanged. UTI on Admission? No Signatures: Dispatcher [employer] EDMS Sung Lynch MD MD cha Mickail, Joel, PA PA jmm Calderon, Audri, LEXI RN aa5 Autumn Delarosa RN RN tw2 Ching Todd Corrections: (The following items were deleted from the chart) 13:22 13:21 Hospitalization Ordered by Blair Arrieta DO for Observation. Preliminary eb diagnosis is Cellulitis of left lower limb. Bed requested for Telemetry/MedSurg (observation). Status is Observation. Condition is Stable. Problem is an acute exacerbation. Symptoms are unchanged. UTI on Admission? No. demetra 13:34 13:22 06/12/2019 13:21 Hospitalization Ordered by Blair Arrieta DO for Observation. eb Preliminary diagnosis is Cellulitis of left lower limb. Bed requested for Telemetry/MedSurg (observation). Status is Observation. Condition is Stable. Problem is an acute exacerbation. Symptoms are unchanged. UTI on Admission? No. eb 14:27 13:34 06/12/2019 13:21 Hospitalization Ordered by Blair Arrieta DO for Observation. tw2 Preliminary diagnosis is Cellulitis of left lower limb. Bed requested for Telemetry/MedSurg (observation). Status is Observation. Condition is Stable. Problem is an acute exacerbation. Symptoms are unchanged. UTI on Admission? No. eb
--- NOTE | 2019-06-12 13:21 | ER ---
Nurse's Notes [facility] Name: Munira Kim Age: 43 yrs Sex: Female : 1975 Arrival Date: 06/12/2019 Time: 10:37 Bed 16 Private MD: Imelda Pittman R Diagnosis: Cellulitis of left lower limb Presentation: 06/12 11:03 Transition of care: patient was not received from another setting of care. Onset of tw2 symptoms was June 12, 2019. Risk Assessment: Do you want to hurt yourself or someone else? Patient reports no desire to harm self or others. Initial Sepsis Screen: Does the patient meet any 2 criteria? No. Patient's initial sepsis screen is negative. Does the patient have a suspected source of infection? No. Patient's initial sepsis screen is negative. Care prior to arrival: None. 11:03 Method Of Arrival: Wheelchair tw2 11:03 Acuity: EFRAIN 3 aa5 11:03 Presenting complaint: Patient states: left lower leg cellulitis. Pt states "I've had aa5 cellulitis for a while and I was admitted and it got better but just today it started getting more red again". pt reports she is currently taking antibiotics. 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 - Social history:: Smoking status: . - Ebola Screening: : Patient denies travel to an Ebola-affected area in the 21 days before illness onset. Screenin:03 Abuse screen: Denies threats or abuse. Nutritional screening: No deficits noted. tw2 Tuberculosis screening: No symptoms or risk factors identified. Fall Risk None identified. Assessment: 11:05 General: Appears in no apparent distress. obese, well groomed, Behavior is calm, tw2 cooperative, appropriate for age. Pain: Complains of pain in left leg. Neuro: Level of Consciousness is awake, alert, obeys commands, Oriented to person, place, time, situation. Cardiovascular: Heart tones S1 S2. Cardiovascular: Edema is 4+ to left midcalf and left ankle redness and swelling noted to left LE. Respiratory: Airway is patent Respiratory effort is even, unlabored, Respiratory pattern is regular, symmetrical, Breath sounds are clear bilaterally. GI: No signs and/or symptoms were reported involving the gastrointestinal system. : No signs and/or symptoms were reported regarding the genitourinary system. EENT: No signs and/or symptoms were reported regarding the EENT system. Derm: No signs and/or symptoms reported regarding the dermatologic system. Musculoskeletal: Range of motion: intact in all extremities. 11:39 Reassessment: Patient appears in no apparent distress at this time. No changes from tw2 previously documented assessment. Patient and/or family updated on plan of care and expected duration. Pain level reassessed. Patient is alert, oriented x 3, equal unlabored respirations, skin warm/dry/pink. 12:30 Reassessment: Patient appears in no apparent distress at this time. No changes from tw2 previously documented assessment. Patient and/or family updated on plan of care and expected duration. Pain level reassessed. Patient is alert, oriented x 3, equal unlabored respirations, skin warm/dry/pink. 13:37 Reassessment: Patient appears in no apparent distress at this time. No changes from tw2 previously documented assessment. Patient and/or family updated on plan of care and expected duration. Pain level reassessed. Patient is alert, oriented x 3, equal unlabored respirations, skin warm/dry/pink. Vital Signs: 11:04 BP 119 / 78; Pulse 84; Resp 16 S; Temp 98.4(O); Pulse Ox 100% on R/A; Weight 117.93 kg aa5 (R); Height 5 ft. 7 in. (170.18 cm) (R); Pain 6/10; 11:38 BP 119 / 78; Pulse 83; Resp 17; Pulse Ox 99% on R/A; tw2 12:49 BP 109 / 73; Pulse 88; Resp 17; Pulse Ox 97% on R/A; tw2 13:37 BP 107 / 71; Pulse 108; Resp 17; Pulse Ox 99% on R/A; tw2 11:04 Body Mass Index 40.72 (117.93 kg, 170.18 cm) aa5 ED Course: 10:37 Patient arrived in ED. rg4 10:38 Imelda Pittman MD is Private Physician. rg4 11:03 Autumn Delarosa, RN is Primary Nurse. tw2 11:03 Arm band placed on. tw2 11:03 Bed in low position. Call light in reach. tw2 11:05 Kwame Jett PA is PHCP. jm 11:05 Sung Lynch MD is Attending Physician. [facility] 11:08 Triage completed. aa5 11:25 Inserted saline lock: 22 gauge in left antecubital area, using aseptic technique. Blood tw2 collected. 13:20 Blair Arrieta DO is Hospitalizing Provider. [facility] 13:38 Awaiting: unsuccessful attempt to call report at this time. tw2 13:38 No provider procedures requiring assistance completed. Patient admitted, IV remains in tw2 place. Administered Medications: No medications were administered Outcome: 13:21 Decision to Hospitalize by Provider. [facility] 14:04 Admitted to Med/surg accompanied by tech, via wheelchair, room 208, Report called to tw2 LEXI Russ 14:04 Condition: stable 14:04 Instructed on the need for admit. 14:27 Patient left the ED. tw2 Signatures: Kwame Jett PA PA jmm Calderon, Audri, RN RN aa5 Autumn Delarosa, LEXI RN tw2 Fouzia Storm rg4
--- NOTE | 2019-06-12 13:32 | P.HP ---
Certification for Inpatient Patient admitted to: Observation With expected LOS: <2 Midnights Patient will require the following post-hospital care: None Practitioner: I am a practitioner with admitting privileges, knowledge of patient current condition, hospital course, and medical plan of care. Services: Services provided to patient in accordance with Admission requirements found in Title 42 Section 412.3 of the Code of Federal Regulations Patient History Date of Service: 06/12/19 Primary Care Provider: Dr. Santo Reason for admission: Recurrent left lower extremity cellulitis History of Present Illness: 43-year-old female with history of chronic lymphedema presents with recurrent left lower extremity cellulitis. Patient was actually hospitalized last week for cellulitis. Patient treated and sent home on doxycycline. Patient was discharge on 06/02/2019. She actually improved but over the last day she had noted increasing swelling, erythema to the left lower extremity. She denies any fever, chills, nausea or vomiting. No significant chest pain or shortness of breath noted. She came to the ER for further evaluation. In the ER vital signs stable. White count 7.1, hemoglobin 11.6. Lactic acid and pro calcitonin within normal range. Sodium 138, potassium 3.1, creatinine 0.86 with a GFR 71. Patient was admitted for further observation and treatment. When I saw the patient ER, she appeared stable. Erythema and swelling noted to the left lower extremity. Allergies meperidine HCl [From Demerol] Adverse Reaction (Verified 01/23/13 18:35) Nausea/Vomiting Home medications list reviewed: Yes Home Medications: Amitriptyline [Elavil*] 100 mg PO DAILY 05/31/19 Triamterene/Hydrochlorothiazid [Triamterene-Hctz 37.5-25 mg Tb] 1 tab PO DAILY 05/31/19 Doxycycline Monohydrate 100 mg PO BID #28 tablet 06/02/19 - Past Medical/Surgical History Diabetic: No -: Chronic lymphedema -: History recurrent left lower extremity cellulitis -: Obesity, BMI 40 -: Anemia of chronic disease -: Cholecystectomy -: Weight loss surgery Psychosocial/ Personal History: Patient lives at home. - Family History Father -: Heart disease, Stroke Mother -: Heart disease, Hypertension Sister -: Heart disease - Social History Smoking Status: Unknown if ever smoked Alcohol use: Yes CD- Drugs: No Caffeine use: Yes Place of Residence: Home Review of Systems General: As per HPI Eyes: Unremarkable ENT: Unremarkable Respiratory: Unremarkable Cardiovascular: Unremarkable Gastrointestinal: Unremarkable Genitourinary: Unremarkable Musculoskeletal: Pedal edema, As per HPI Integumentary: As per HPI Neurological: Unremarkable Lymphatics: Unremarkable Physical Examination - Physical Exam General: Alert, In no apparent distress, Oriented x3, Cooperative HEENT: Atraumatic, Normocephalic, EOMI Neck: Supple Respiratory: Clear to auscultation bilaterally, Normal air movement Cardiovascular: Normal pulses, Regular rate/rhythm Gastrointestinal: Normal bowel sounds, Soft and benign, Non-distended, No guarding Musculoskeletal: Other (Erythema, edema to the left lower extremity compared to the right. Patient with chronic lymphedema. Swelling and erythema noted from the foot up to the just below the knee.) Integumentary: Other (As above) Neurological: Normal speech, Normal strength at 5/5 x4 extr, Normal tone, Normal affect - Studies Laboratory Data (last 24 hrs) 06/12/19 11:25: Sodium 138, Potassium 3.1 L, BUN 13, Creatinine 0.86, Glucose 89 , Total Bilirubin 0.5, AST 17, ALT 19, Alkaline Phosphatase 107 06/12/19 11:25: WBC 7.1 D, Hgb 11.6 L, Hct 34.4 L D, Plt Count 288 D Assessment and Plan - Plan Impression: Recurrent left lower extremity cellulitis with chronic lymphedema Hypokalemia Anemia of chronic disease Obesity, BMI 40 Plan: Recurrent left lower extremity cellulitis with chronic lymphedema: Patient to be admitted for further evaluation and treatment. Will start IV vancomycin and cefepime. Will elevate leg when sitting or lying. Previous information reviewed. Previous venous Doppler negative. Will provide medication for pain. Will provide DVT prophylaxis-Lovenox. Anticipate clinical improvement over the next 24-48 hr. Likely discharge at that time. Hospital team will continue her care tomorrow. Patient will likely require dual antibiotic therapy at discharge. Will recommend lymphedema clinic evaluation as an outpatient. Hypokalemia: Will provide electrolyte protocol replacement. Will monitor closely. Anemia of chronic disease: Will monitor closely. Obesity, BMI 40: Address lifestyle modification education. Discharge Plan: Home Plan to discharge in: 48 Hours - Advance Directives Does patient have a Living Will: No Does patient have a Durable POA for Healthcare: No - Code Status/Comfort Care Code Status Assessed: Yes (Patient is full code) Time Spent Managing Pts Care (In Minutes): 55
[2019-06-12] MEDS ORDERED: TRAMADOL HCL 50 MG TAB PO PRN (15:23)
[2019-06-12] MEDS ORDERED: ACETAMINOPHEN 500 MG TAB PO PRN (15:23)
[2019-06-12] MEDS ORDERED: HYDROCODONE/APAP 7.5/325 MG TAB PO PRN (15:23)
[2019-06-12] MEDS ORDERED: ONDANSETRON 4 MG/2 ML VIAL IV PRN (15:23)
[2019-06-12 15:45] VITALS: BMI 40.7
[2019-06-12] MEDS: ENOXAPARIN 40 MG/0.4 ML SQ SCH (17:18)
[2019-06-12] MEDS: VANCOMYCIN 2 GM in NA CHLORIDE 0.9% 500 ML IVPB SCH (17:18)
[2019-06-12] MEDS ORDERED: PNEUMOCOCCAL VACCINE 0.5 ML IMVAC ONE (18:00)
[2019-06-12] MEDS ORDERED: INFLUENZA VACCINE (for 3y+) 0.5 ML DOSE IMVAC ONE (18:00)
[2019-06-12] MEDS ORDERED: CEFEPIME 1 GM/VIAL IV SCH (21:00)
[2019-06-12] MEDS: CEFEPIME/SWI 1gm 10 ML IVP SCH (21:33)
[2019-06-13] MEDS: VANCOMYCIN 2 GM in NA CHLORIDE 0.9% 500 ML IVPB SCH (04:14)
[2019-06-13 05:13] LABS: Urine Appearance CLEAR; Urine Bilirubin NEGATIVE (NEG); Urine Blood NEGATIVE (NEG); Urine Color YELLOW; Urine Glucose NEGATIVE (NEG); Urine Protein NEGATIVE (NEG); Urine Urobilinogen 0.2 mg/dL (0.2-1.0)
[2019-06-13 05:15] LABS: Urine Microscopic Reflex NO UMIC
[2019-06-13 05:45] LABS: Absolute Lymphocytes (CBC) 0.8 K/uL (0.7-4.9); Basophils % 0.6 % (0-1.3); Hematocrit 30.2 % (36.0-45.0); Lymphocytes % 13.3 % (15.3-44.8); MPV 8.4 fL (7.6-11.3); RBC Red Blood Cell Count 3.75 M/uL (3.86-4.86)
[2019-06-13 05:59] LABS: Magnesium 2.3 mg/dL (1.8-2.4); Potassium 3.4 mmol/L (3.5-5.1)
[2019-06-13] MEDS ORDERED: POTASSIUM 25 MEQ EFFERV TAB PO ONE (08:00)
[2019-06-13 08:11] VITALS: O2SAT 96
[2019-06-13] MEDS: ENOXAPARIN 40 MG/0.4 ML SQ SCH (08:59)
[2019-06-13] MEDS: CEFEPIME/SWI 1gm 10 ML IVP SCH (08:59)
[2019-06-13 12:56] VITALS: BP 109/53; TEMP 97
--- NOTE | 2019-06-13 14:04 | P.DS ---
Admission Date: 06/12/19 Discharge Date: 06/13/19 Primary Care Provider: Dr. Santo Disposition: ROUTINE DISCHARGE Discharge Condition: GOOD Reason for Admission: Recurrent left lower extremity cellulitis Brief History of Present Illness: This 43 years of age with lymphedema admitted with worsening swelling and pain on the left leg Hospital Course: Patient did well pain and swelling improved vital signs stable cultures all negative white count normal patient will be discharged home on levofloxacin in finish her doxycycline. As patient's relapsed while she was taking doxycycline blood cultures are all negative the time of discharge patient alert oriented responsive cooperative vital signs stable cardiovascular muscles normal abdomen soft extremities redness the swelling is decreased she has gross lymphedema on both her legs patient is mildly anemic and hypokalemic to follow up with the primary care physician Vital Signs/Physical Exam: Temp Pulse Resp BP Pulse Ox 97.0 F 88 16 109/53 L 98 06/13/19 12:00 06/13/19 12:00 06/13/19 12:00 06/13/19 12:00 06/13/19 12:00 Laboratory Data at Discharge: WBC 6.0 K/uL (4.3-10.9) D 06/13/19 05:29 Hgb 9.9 g/dL (12.0-15.0) L 06/13/19 05:29 Hct 30.2 % (36.0-45.0) L 06/13/19 05:29 Plt Count 232 K/uL (152-406) 06/13/19 05:29 Sodium 142 mmol/L (136-145) 06/13/19 05:29 Potassium 3.4 mmol/L (3.5-5.1) L 06/13/19 05:29 BUN 10 mg/dL (7-18) 06/13/19 05:29 Creatinine 0.84 mg/dL (0.55-1.3) 06/13/19 05:29 Glucose 82 mg/dL (74-106) 06/13/19 05:29 Magnesium 2.3 mg/dL (1.8-2.4) 06/13/19 05:29 Total Bilirubin 0.5 mg/dL (0.2-1.0) 06/12/19 11:25 AST 17 U/L (15-37) 06/12/19 11:25 ALT 19 U/L (12-78) 06/12/19 11:25 Alkaline Phosphatase 107 U/L (45-117) 06/12/19 11:25 Home Medications: Amitriptyline [Elavil*] 100 mg PO BEDTIME 05/31/19 Triamterene/Hydrochlorothiazid [Triamterene-Hctz 37.5-25 mg Tb] 2 tab PO DAILY 05/31/19 Doxycycline Monohydrate 100 mg PO BID #28 tablet 06/02/19 Levofloxacin [Levaquin] 750 mg PO DAILY #10 tablet 06/13/19 New Medications: Levofloxacin [Levaquin] 750 mg PO DAILY #10 tablet Patient Discharge Instructions: F/u with primary care 1-2 wks Diet: Regular Activity: Ad gordo
== END 2019-06-13 14:44 | disposition home or self-care (01) ==
LOC: ER 10:35 → 2ND 13:21
PROVIDERS: ADMIT Family Medicine; ATTEND Internal Medicine Sleep Medicine
DX: L03.116 Cellulitis of left lower limb (principal); I89.0 Lymphedema, not elsewhere classified; Z68.41 Body mass index [BMI] 40.0-44.9, adult; E87.6 Hypokalemia; D63.8 Anemia in other chronic diseases classified elsewhere; Z28.21 Immunization not carried out because of patient refusal
CPT/HCPCS: 36415; 80048; 80053; 81003; 83605; 83735; 84132; 84145; 85025; 85652; 87040; 99285; G0378; J0692; J1650; J7040

== ENCOUNTER 2024-11-04 18:42 | Inpatient (IN) | payer OTHER ==
--- OUTSIDE RECORDS SUMMARY | 2024-11-04 18:46 | XMS REPORT | Continuity of Care Document ---
Author Name Unknown Address [address] [facility] [address] [place] [address] [facility] Address [address] [facility] [address] [place] [address] Care Team Providers Care Repairer Handtools Name Role Phone Zain RUIZ, Wally Primary Care Physic yvette [phone] Francesca Gupta Attending Clinician [phone] FRANCESCA SCHUSTER Attending Clinician Unavail le Doctor Unassigned, [place] Attending Clinician U navailable Payers Payer Name Policy Type Policy Number Effective Date Expirati on Date Source Problems Condition Name Condition Details Condition Category Status Onset Date Resolution Date Last Treatment Date Treating Clinician Comments Source Lymphedema Lymphedema Disease Active 02-18 00:00: 00 [facility] Allergies, Adverse Reactions, Alerts Allergy Name Allergy Type Status Severity Reaction(s) Onset Date Inactive Date Treating Clinician Comments Source n Propensi ty to adverse reaction to drug Active 6-08 00:00: 00 Roque Tamayo Demerol - Oral Propensi ty to adverse reaction to drug Active 5-11 00:00: 00 Roque Tamayo Atropine -Demerol Propensi ty to adverse reaction s Active Nausea and/or Vomiting 02-18 00:00: 00 [facility] ATROPINE -DEMEROL DRUG Active N/V 02-18 00:00: 00 [facility] Demerol Propensi ty to adverse reaction to drug Active 09-21 00:00: 00 Roque Tamayo NO KNOWN ALLERGIE S Drug Class Active [facility] Social History Social Habit Start Date Stop Date Quantity Comments Source Exposure to SARS-CoV-2 (event) Not sure [facility] Tobacco use and exposure 2021-02-18 00:00:00 2021-02-18 00:00:00 Never used [facility] Sex Assigned At 1975 00:00:00 1975 00:00:00 [facility] Smoking Status Start Date Stop Date Source Unknown [facility] Medications Ordered Medication Name Filled Medication Name Start Date Stop Date Current Medication? Ordering Clinician Indication Dosage Frequency Signature (SIG) Comments Components Source gentamicin 0.3 % eye drops 09-28 00:00: 00 Yes 1% Roque Tamayo cefuroxime axetil 500 mg tablet 09-28 00:00: 00 Yes 1mg Roque Tamayo amitriptyli ne 50 mg tablet 08-06 00:00: 00 Yes 1mg Roque Tamayo Maxalt 10 mg tablet 08-06 00:00: 00 Yes 1mg Roque Tamayo amitriptyli ne 50 mg tablet 2023-08 00:00: 00 Yes 1mg Roque Tamayo triamterene 37.5 mg-hydrochl orothiazide 25 mg capsule 2023-08 00:00: 00 Yes 1mg Roque Tamayo Maxalt 10 mg tablet 01-07 00:00: 00 Yes 1mg Roque Tamayo triamterene 37.5 mg-hydrochl orothiazide 25 mg capsule 01-07 00:00: 00 Yes 1mg Roque Tamayo amitriptyli ne 50 mg tablet 01-07 00:00: 00 Yes 1mg Roque Tamayo TAKE 1 TABLET EVERY 12 HOURS DAILY. 2022-08 00:00: 00 Yes 500 Roque Tamayo TAKE 1 TABLET DAILY. 2022-08 00:00: 00 Yes 50 Roque Tamayo TAKE 1 TABLET 3 TIMES DAILY UNTIL GONE. 04-29 00:00: 00 08-07 00:00 :00 No [id number] Roque Tamayo TAKE 1 CAPSULE EVERY MORNING. 02-27 00:00: 00 Yes [id number] Roque Tamayo TAKE 1 TABLET DAILY. 02-27 00:00: 00 Yes 50 Roque Tamayo APPLY SPARINGLY TO AFFECTED AREA(S) ONCE DAILY. 02-27 00:00: 00 08-07 00:00 :00 No 2 Roque Tamayo TAKE 1 TABLET 1 TIME ONLY. 02-27 00:00: 00 08-07 00:00 :00 No 200 Roque Tamayo TAKE 1 CAPSULE EVERY MORNING. 10-15 00:00: 00 08-07 00:00 :00 No [id number] Roque Tamayo TAKE 1 TABLET DAILY. 10-15 00:00: 00 08-07 00:00 :00 No 50 Roque Tamayo TAKE ONE TABLET BY MOUTH THREE TIMES A DAY FOR TWO DAYS, THEN TWICE A DAY FOR TWO DAYS, THEN ONCE A DAY FOR TWO DAYS, THEN ONE-HALF TABLET ONCE A DAY FOR TWO DAYS THEN STOP 2021-08 00:00: 00 Yes Roque Tamayo Dose Unknown 03-06 00:00: 00 Yes Roque Tamayo TRIAMTERENE /HYDROCHLOR OTH 37.5-25 TAB 03-06 00:00: 00 Yes Roque Tamayo &lt 0 8 00:00: 00 Yes Roque Tamayo &lt 0 03-06 00:00: 00 Yes 5 Roque Tamayo TAKE 1 CAPSULE BY MOUTH TWICE DAILY 03-06 00:00: 00 Yes 100 Roque Tamayo INSTILL 1 DROP INTO AFFECTED EYE TWICE DAILY 03-06 00:00: 00 Yes Roque Tamayo Dose Unknown 03-06 00:00: 00 Yes Roque Tamayo TAKE 2 TABLETS BY MOUTH ONCE DAILY 03-06 00:00: 00 Yes 50 Roque Tamayo APPLY SPARINGLY TO AFFECTED AREAS TWICE A DAY 03-06 00:00: 00 Yes Roque Tamayo TAKE 1 TABLET BY MOUTH ONCE DAILY 03-06 00:00: 00 Yes Roque Tamayo &lt 0 02-18 00:00: 00 Yes Roque Tamayo Dose Unknown 02-18 00:00: 00 Yes Roque Tamayo TAKE 1 CAPSULE BY MOUTH TWICE DAILY 02-18 00:00: 00 Yes 100 Roque Tamayo INSTILL 1 DROP INTO AFFECTED EYE TWICE DAILY 0 -09 00:00: 00 Yes Roque Tamayo Bactrim DS 800 mg-160 mg tablet 0 - 00:00: 00 Yes 1mg Roque Tamayo clindamycin HCl 300 mg capsule 0 - 00:00: 00 Yes 1mg Roque Tamayo &lt 2021-0 - 00:00: 00 Yes Roque Tamayo TAKE 2 TABLETS BY MOUTH ONCE DAILY 0 - 00:00: 00 Yes Roque Tamayo SULFAMETHOX AZOLE/TRIME THO 544-153 4706-0 - 00:00: 00 Yes Roque Tamayo GENTAMICIN SULFATE 0.3% OP SRINI 0 -16 00:00: 00 Yes 300 Roque Tamayo amitriptyli ne 50 mg tablet 0 - 00:00: 00 Yes 2mg Roque Tamayo triamterene 37.5 mg-hydrochl orothiazide 25 mg tablet 0 6-09 00:00: 00 Yes 1mg Roque Tamayo Maxalt 10 mg tablet 0 - 00:00: 00 Yes 1mg Roque Tamayo ibuprofen 800 mg tablet 0 6- 00:00: 00 Yes 1mg Roque Tamayo TAKE 1 CAPSULE BY MOUTH TWICE DAILY 0 -09 00:00: 00 Yes Roque Tamayo &lt 0 6-09 00:00: 00 Yes Roque Tamayo INSTILL 1 DROP INTO RIGHT EYE THREE TIMES DAILY 0 -09 00:00: 00 Yes Roque Tamayo RIZATRIPTAN BENZOATE 10MG 0 -09 00:00: 00 Yes [id number] Roque Tamayo triamterene 37.5 mg-hydrochl orothiazide 25 mg tablet 0 5-11 00:00: 00 Yes 1mg Roque Tamayo amitriptyli ne 50 mg tablet 0 5-11 00:00: 00 Yes 2mg Roque Tamayo TAKE 1 CAPSULE BY MOUTH TWICE DAILY 2021-0 3-13 00:00: 00 Yes Roque Tamayo Dose Unknown 0 1-18 00:00: 00 Yes Roque Tamayo Dose Unknown 08-22 00:00: 00 Yes Roque Tamayo Bactrim DS 800 mg-160 mg tablet 08-22 00:00: 00 Yes 1mg Roque Tamayo amitriptyli ne 50 mg tablet 2020-08 00:00: 00 Yes 2mg Roque Tamayo triamterene 37.5 mg-hydrochl orothiazide 25 mg tablet 2020-08 00:00: 00 Yes 1mg Roque Tamayo triamterene 37.5 mg-hydrochl orothiazide 25 mg tablet 04-26 00:00: 00 Yes 1mg Roque Tamayo metronidazo le 500 mg tablet 03-08 00:00: 00 Yes 1mg Roque Tamayo Nitrofurant oin&Nit. Macrocryst (MACROBID) 100 mg capsule 02-18 00:00: 00 02-24 04:59 :00 No [id number] 100mg Take 1 capsule by mouth 2 (two) times daily for 5 days. [facility] cyclobenzap rine 5 mg tablet 01-17 00:00: 00 Yes 1mg Roque Tamayo ibuprofen 800 mg tablet 01-17 00:00: 00 Yes 1mg Roque Tamayo amitriptyli ne 50 mg tablet 01-11 00:00: 00 Yes 100mg Take 100 mg by mouth daily. [facility] triamterene 37.5 mg-hydrochl orothiazide 25 mg tablet 11-30 00:00: 00 Yes 1mg Roque Tamayo amitriptyli ne 50 mg tablet 11-30 00:00: 00 Yes 2mg Roque Tamayo Maxalt 10 mg tablet 11-30 00:00: 00 Yes 1mg Roque Tamayo triamterene -hydrochlor othiazid 37.5-25 mg tablet 11-30 00:00: 00 Yes 1{tbl} Take 1 tablet by mouth daily. [facility] Bactrim DS 800 mg-160 mg tablet 3-16 00:00: 00 Yes 1mg Roque Tamayo triamterene 37.5 mg-hydrochl orothiazide 25 mg tablet 2019-1 0-29 00:00: 00 Yes 1mg Roque Tamayo amitriptyli ne 50 mg tablet 1 0-29 00:00: 00 Yes 2mg Roque Tamayo Bactrim DS 800 mg-160 mg tablet 2019-1 0-29 00:00: 00 Yes 1mg Roque Tamayo triamterene 37.5 mg-hydrochl orothiazide 25 mg tablet 2019-0 6-09 00:00: 00 Yes 1mg Roque Tamayo amitriptyli ne 50 mg tablet 2019-0 6-09 00:00: 00 Yes 2mg Roque aTmayo Maxalt 10 mg tablet 2019-0 6-09 00:00: 00 Yes 1mg Roque Tamayo amitriptyli ne 50 mg tablet 2019-0 6-08 00:00: 00 Yes 2mg Roque Tamayo Maxalt 10 mg tablet 2019-0 2-18 00:00: 00 Yes 1mg Roque Tamayo amitriptyli ne 50 mg tablet 2019-0 2-18 00:00: 00 Yes 2mg Roque Tamayo triamterene 37.5 mg-hydrochl orothiazide 25 mg tablet 2019-0 2-18 00:00: 00 Yes 1mg Roque Tamayo amitriptyli ne 50 mg tablet 2019-0 2-17 00:00: 00 Yes 2mg Roque Tamayo Maxalt 10 mg tablet 2019-0 2-17 00:00: 00 Yes 1mg Roque Tamayo triamterene 37.5 mg-hydrochl orothiazide 25 mg tablet 2019-0 2-17 00:00: 00 Yes 1mg Roque Tamayo Augmentin 875 mg-125 mg tablet 2019-0 2-17 00:00: 00 Yes 1mg Roque Jessica Roni Immunizations Ordered Immunization Name Filled Immunization Name Date Status Comments Source SHINGRIX VACCINE SHINGRIX VACCINE 2024-10-21 00:00:00 Ronald Tamayo Influenza, injectable, Madin Mary Canine Kidney, preservative-free, quadrivalent Influenza, injectable, Madin [place] Canine Kidney, preservative-free, quadrivalent 2024-08-03 00:00:00 Ronald Tamayo Vital Signs Vital Name Observation Time Observation Value Comments S wong Systolic blood pressure 2021-02-18 14:20:00 116 mm[Hg] [facility] Diastolic blood pressure 2021-02-18 14:20:00 60 mm[Hg] [facility] Heart rate 2021-02-18 14:20:00 104 /[facility] Body temperature 2021-02-18 14:20:00 37 Margot [facility] Respiratory rate 2021-02-18 14:20:00 18 /min [facility] Body height 2021-02-18 14:20:00 170.2 cm [facility] Body weight 2021-02-18 14:20:00 125.646 kg [facility] BMI 2021-02-18 14:20:00 43.38 kg/m2 [facility] Oxygen saturation in Arterial blood by Pulse oximetry 2021-02-18 14:20:00 96 /min [facility] BP Systolic 2024-10-21 15:55:00 124 mm[Hg] Step hen F Roni BP Diastolic 2024-10-21 15:55:00 84 mm[Hg] Flaco phen F Roni Weight Measured 2024-10-21 15:55:00 356.60 pounds Roque Tamayo Height Measured 2024-10-21 15:55:00 67.00 inches Roque Lopez Roni Body Temperature 2024-10-21 15:55:00 97.50 degrees Roque F Roni Heart Rate 2024-10-21 15:55:00 96.00 /min Lelo en F Roni Respiratory Rate 2024-10-21 15:55:00 18.00 /min Roque F Roni BP Systolic 2024-09-28 15:40:00 Step hen F Roni BP Diastolic 2024-09-28 15:40:00 Flaco phen F Roni Weight Measured 2024-09-28 15:40:00 Roque F Roni Height Measured 2024-09-28 15:40:00 Roque F Roni Body Temperature 2024-09-28 15:40:00 Roque F Roni Heart Rate 2024-09-28 15:40:00 Lelo en F Roni Respiratory Rate 2024-09-28 15:40:00 Roque F Roni BP Systolic 2024-08-03 10:44:00 139 mm[Hg] Step hen F Roni BP Diastolic 2024-08-03 10:44:00 76 mm[Hg] Flaco phen F Roni Weight Measured 2024-08-03 10:44:00 373.00 pounds Roque F Roni Height Measured 2024-08-03 10:44:00 67.00 inches Roque F Roni Body Temperature 2024-08-03 10:44:00 97.90 degrees Roque F Roni Heart Rate 2024-08-03 10:44:00 76.00 /min Lelo en F Roni Respiratory Rate 2024-08-03 10:44:00 Roque F Roni BP Systolic 2024-01-08 15:03:00 116 mm[Hg] Step hen F Roni BP Diastolic 2024-01-08 15:03:00 81 mm[Hg] Flaco phen F Roni Weight Measured 2024-01-08 15:03:00 358.40 pounds Roque F Roni Height Measured 2024-01-08 15:03:00 67.00 inches Roque F Roni Body Temperature 2024-01-08 15:03:00 98.30 degrees Roque F Roni Heart Rate 2024-01-08 15:03:00 85.00 /min Lelo en F Roni Respiratory Rate 2024-01-08 15:03:00 Roque F Roni BP Systolic 2023-07-18 15:53:00 136 mm[Hg] Step hen F Roni BP Diastolic 2023-07-18 15:53:00 83 mm[Hg] Flaco phen F Roni Weight Measured 2023-07-18 15:53:00 343.80 pounds Roque F Roni Height Measured 2023-07-18 15:53:00 67.00 inches Roque F Roni Body Temperature 2023-07-18 15:53:00 97.30 degrees Roque F Roni Heart Rate 2023-07-18 15:53:00 98.00 /min Lelo en F Roni Respiratory Rate 2023-07-18 15:53:00 Roque F Roni BP Systolic 2023-04-29 15:28:00 116 mm[Hg] Step hen F Roni BP Diastolic 2023-04-29 15:28:00 82 mm[Hg] Flaco phen F Roni Weight Measured 2023-04-29 15:28:00 327.20 pounds Roque F Roni Height Measured 2023-04-29 15:28:00 67.00 inches Roque F Roni Body Temperature 2023-04-29 15:28:00 98.50 degrees Roque F Roni Heart Rate 2023-04-29 15:28:00 94.00 /min Lelo en F Roni Respiratory Rate 2023-04-29 15:28:00 Roque F Roni BP Systolic 2023-02-27 10:09:00 112 mm[Hg] Step hen F Roni BP Diastolic 2023-02-27 10:09:00 78 mm[Hg] Flaco phen F Roni Weight Measured 2023-02-27 10:09:00 326.80 pounds Roque F Roni Height Measured 2023-02-27 10:09:00 67.00 inches Roque F Roni Body Temperature 2023-02-27 10:09:00 97.60 degrees Roque F Roni Heart Rate 2023-02-27 10:09:00 98.00 /min Lelo en F Roni Respiratory Rate 2023-02-27 10:09:00 Roque F Roni BP Systolic 2022-10-15 15:33:00 125 mm[Hg] Step hen F Roni BP Diastolic 2022-10-15 15:33:00 86 mm[Hg] Flaco phen F Roni Weight Measured 2022-10-15 15:33:00 311.20 pounds Roque F Roni Height Measured 2022-10-15 15:33:00 67.00 inches Roque F Roni Body Temperature 2022-10-15 15:33:00 97.70 degrees Roque F Roni Heart Rate 2022-10-15 15:33:00 81.00 /min Lelo en F Roni Respiratory Rate 2022-10-15 15:33:00 Roque F Roni BP Systolic 2022-03-06 10:30:00 105 mm[Hg] Step hen F Roni BP Diastolic 2022-03-06 10:30:00 71 mm[Hg] Flaco phen F Roni Weight Measured 2022-03-06 10:30:00 284.80 pounds Roque F Roni Height Measured 2022-03-06 10:30:00 67.00 inches Roque F Roni Body Temperature 2022-03-06 10:30:00 98.50 degrees Roque F Roni Heart Rate 2022-03-06 10:30:00 109.00 /min Step hen F Roni Respiratory Rate 2022-03-06 10:30:00 21.00 /min Roque F Roni BP Systolic 2021-08-22 16:35:00 112 mm[Hg] Step hen F Roni BP Diastolic 2021-08-22 16:35:00 75 mm[Hg] Flaco phen F Roni Weight Measured 2021-08-22 16:35:00 299.20 pounds Roque F Roni Height Measured 2021-08-22 16:35:00 67.00 inches Roque F Roni Body Temperature 2021-08-22 16:35:00 97.20 degrees Roque F Roni Heart Rate 2021-08-22 16:35:00 90.00 /min Lelo en F Roni Respiratory Rate 2021-08-22 16:35:00 Roque F Roni BP Systolic 2021-06-27 15:30:00 117 mm[Hg] Step hen F Roni BP Diastolic 2021-06-27 15:30:00 76 mm[Hg] Flaco phen F Roni Weight Measured 2021-06-27 15:30:00 288.60 pounds Roque F Roni Height Measured 2021-06-27 15:30:00 67.00 inches Roque F Roni Body Temperature 2021-06-27 15:30:00 97.50 degrees Roque F Roni Heart Rate 2021-06-27 15:30:00 90.00 /min Lelo en F Roni Respiratory Rate 2021-06-27 15:30:00 Roque F Roni BP Systolic 2021-03-07 14:56:00 101 mm[Hg] Step hen F Roni BP Diastolic 2021-03-07 14:56:00 69 mm[Hg] Flaco phen F Roni Weight Measured 2021-03-07 14:56:00 282.20 pounds Roque F Roni Height Measured 2021-03-07 14:56:00 67.00 inches Roque F Roni Body Temperature 2021-03-07 14:56:00 Roque F Roni Heart Rate 2021-03-07 14:56:00 96.00 /min Lelo en F Roni Respiratory Rate 2021-03-07 14:56:00 Roque F Roni BP Systolic 2021-02-28 08:05:00 101 mm[Hg] Ever Tamayo BP Diastolic 2021-02-28 08:05:00 71 mm[Hg] Flaco Tamayo Weight Measured 2021-02-28 08:05:00 283.20 pounds Roque Tamayo Height Measured 2021-02-28 08:05:00 67.00 inches Roque Tamayo Body Temperature 2021-02-28 08:05:00 98.20 degrees Roque Tamayo Heart Rate 2021-02-28 08:05:00 92.00 /min Lelo Tamayo Respiratory Rate 2021-02-28 08:05:00 17.00 /min Roque Tamayo Encounters Start Date/Time End Date/Time Encounter Type Admission Type Attending [facility] Care Department Encounter ID Source 2024-11-02 15:47:20 2024-11-02 15:47:20 Outpatient [facility] [id number] Roque Tamayo 2024-10-22 16:06:57 2024-10-22 16:06:57 Outpatient SFA SFA [id number] Roque Tamayo 2024-10-21 15:35:11 2024-10-21 15:35:11 Outpatient SFA SFA [id number] Roque Tamayo 2024-10-21 00:00:00 2024-10-21 00:00:00 Outpatient Visit SFA [id number] Roque Tamayo 2024-09-28 15:39:45 2024-09-28 15:39:45 Outpatient SFA SFA [id number] Roque Tamayo 2024-09-28 00:00:00 2024-09-28 00:00:00 Outpatient Visit SFA [id number] Roque Tamayo 2024-08-03 10:55:03 2024-08-03 10:55:03 Outpatient SFA SFA [id number] Roque Tamayo 2024-08-03 00:00:00 2024-08-03 00:00:00 Outpatient Visit SFA [id number] Roque Tamayo 2024-01-08 14:56:14 2024-01-08 14:56:14 Outpatient SFA [facility] [id number] Roque Tamayo 2024-01-08 00:00:00 2024-01-08 00:00:00 Outpatient Visit [facility] [id number] Roque Tamayo 2023-07-18 15:53:13 2023-07-18 15:53:13 Outpatient SFA [facility] [id number] Roque Lopez Roni 2023-04-29 15:12:59 2023-04-29 15:12:59 Outpatient SFA [facility] [id number] Roque Tamayo 2023-02-27 10:02:21 2023-02-27 10:02:21 Outpatient [facility] [id number] Roque Lopez Roni 2022-10-15 15:27:57 2022-10-15 15:27:57 Outpatient SFA [facility] [id number] Roque Lopez Roni 2021-02-18 09:09:04 2021-02-18 09:50:55 Urgent Care Francesca Schuster [facility] [address] ..[id number] [facility] 2021-02-18 09:20:00 2021-02-18 09:20:00 Outpatient R FRANCESCA SCHUSTER [facility] [id number] [facility] 2021-02-18 00:00:00 2021-02-18 00:00:00 Letter (Out) Doctor Unassigned, [place] [facility] [id number] [facility] 2021-02-18 00:00:00 2021-02-18 00:00:00 Letter (Out) Doctor Unassigned, [place] [facility] [id number] [facility] Results Test Description Test Time Test Comments Results Result Co mments Source Roque TamayoCOMPREHENSIVE METABOLIC [id number] 00:00:00* Test Item Value Reference Range Interpretation Comme nts GLUCOSE (test code = 2345-7) 107 mg/dL UREA NITROGEN (BUN) (test code = 3094-0) 11 mg/dL CREATININE (test code = 2160-0) 0.88 mg/dL EGFR (test code = 53187-3) 80 mL/min/1.73m2 BUN/CREATININE RATIO (test code = 3097-3) SEE NOTE: (calc) SODIUM (test code = 2951-2) 135 mmol/L POTASSIUM (test code = 2823-3) 4.1 mmol/L CHLORIDE (test code = 2075-0) 94 mmol/L CARBON DIOXIDE (test code = 2027-9) 29 mmol/L CALCIUM (test code = 83592-6) 9.9 mg/dL PROTEIN, TOTAL (test code = 2885-2) 7.8 g/dL ALBUMIN (test code = 1751-7) 4.5 g/dL GLOBULIN (test code = 28448-7) 3.3 g/dL(calc) ALBUMIN/GLOBULIN RATIO (test code = 1759-0) 1.4 (calc) BILIRUBIN, TOTAL (test code = 1975-2) 0.5 mg/dL ALKALINE PHOSPHATASE (test code = 6768-6) 110 U/L AST (test code = 1920-8) 21 U/L ALT (test code = 1742-6) 20 U/L Roque TamayoHEMOGLOBIN [id number] 00:00:00* Test Item Value Reference Range Interpretation Comme marino HEMOGLOBIN A1c (test code = 4548-4) 6.5 %oftotalHgb Roque TamayoVIOLET [id number] 10:36:22SPECIMEN NUMBER: [id number] CULTURE, ANAEROBIC SPECIMEN NUMBER: [id number] SPECIMEN COMMENT: R FOOT ULCER SOURCE: ULCER REPORT STATUS: FINAL DIRECT GRAM STAIN: NO WBCs SEEN RARE GRAM POSITIVE COCCI FINAL REPORT: 07/24/2023 NO ANAEROBES RECOVERED AFTER 5 DAYS PRELIMINARY REPORT: 07/23/2023 NO ANAEROBES ISOLATED AT 4 DAYS ADDITIONAL OBSERVATIONS: 07/24/2023 POTENTIAL AEROBIC PATHOGEN RECOVERED.NO FURTHER WORKUP UNLESS REQUESTED. UNLESS OTHERWISE INDICATED, ALL TESTING PERFORMED AT [facility] [address] [place] [address] STROKE BELT SANDER OPERATOR: GWEN KAUFFMAN M.D. CLIA NUMBER [id number] [facility] [place] [id number] CULTURE, [id number] 00:00:00* Test Item Value Reference Range Interpretation Comme nts CULTURE, ANAEROBIC (test code = 27974) SPECIMEN NUMBER: [id number] Roque TamayoCULTURE, [id number] 00:00:00* Test Item Value Reference Range Interpretation Comme nts CULTURE, ANAEROBIC (test code = 25571) SPECIMEN NUMBER: [id number] Roque TamayoCULTURE, [id number] 00:00:00* Test Item Value Reference Range Interpretation Comme nts CULTURE, ANAEROBIC (test code = 09760) SPECIMEN NUMBER: [id number] Roque TamayoCULTURE, [id number] 00:00:00* Test Item Value Reference Range Interpretation Comme nts CULTURE, ANAEROBIC (test code = 39745) SPECIMEN NUMBER: [id number] Roque TamayoPAP TEST, THINPREP, [id number] 00:00:00* Test Item Value Reference Range Interpretation Comme nts SOURCE: (test code = 8001) Cervical/Vaginal SLIDES: (test code = 8011) 1 LMP: (test code = 8021) NOT GIVEN SPECIMEN ADEQUACY: (test code = 08973) (NOTE) INTERPRETATION: (test code = 81660) NILM/NO EPITH. ABNORMALITY;SEE BELOW FURNACE HAND: (test code = 8101) Joslyn Hernandez LOCATION: (test code = 38585) (NOTE) CPT: (test code = 8140) (NOTE) Roque TamayoVAGINAL PATHOGENS DNA [id number] 00:00:00* Test Item Value Reference Range Interpretation Comme nts ALYSIA SPECIES (test code = 30460) NEGATIVE G. VAGINALIS (test code = ) POSITIVE T. VAGINALIS (test code = 99380) NEGATIVE Roque Lopez AustinHPV HIGH RISK WITH GENOTYPE, [id number] 00:00:00* Test Item Value Reference Range Interpretation Comme nts HPV HIGH RISK INTERP (test c ode = 86138) NEGATIVE HPV 16 (test code = 26173) NEGATIVE HPV 18 (test code = 12172) NEGATIVE HPV, HR, OTHER GENOTYPES (te st code = 42113) NEGATIVE Roque Lopez AustinVAGINAL PATHOGENS DNA [id number] 00:00:00* Test Item Value Reference Range Interpretation Comme nts ALYSIA SPECIES (test code = ) NEGATIVE G. VAGINALIS (test code = ) POSITIVE T. VAGINALIS (test code = ) NEGATIVE Roque Lopez AustinPAP TEST, THINPREP, [id number] 00:00:00* Test Item Value Reference Range Interpretation Comme nts SOURCE: (test code = 8000) Cervical/Vaginal SLIDES: (test code = 8011) 1 LMP: (test code = 8021) NOT GIVEN SPECIMEN ADEQUACY: (test code = 23056) (NOTE) INTERPRETATION: (test code = 70726) NILM/NO EPITH. ABNORMALITY;SEE BELOW FURNACE HAND: (test code = 8101) Joslyn [employer] LOCATION: (test code = 59079) (NOTE) CPT: (test code = 8140) (NOTE) Roque TamayoHPV HIGH RISK WITH GENOTYPE, [id number] 00:00:00* Test Item Value Reference Range Interpretation Comme nts HPV HIGH RISK INTERP (test c ode = 55968) NEGATIVE HPV 16 (test code = 62659) NEGATIVE HPV 18 (test code = 48725) NEGATIVE HPV, HR, OTHER GENOTYPES (te st code = 13167) NEGATIVE Roque Lopez AustinPAP TEST, THINPREP, [id number] 00:00:00* Test Item Value Reference Range Interpretation Comme nts SOURCE: (test code = 8001) Cervical/Vaginal SLIDES: (test code = 8011) 1 LMP: (test code = 8021) NOT GIVEN SPECIMEN ADEQUACY: (test code = 25381) (NOTE) INTERPRETATION: (test code = 57556) NILM/NO EPITH. ABNORMALITY;SEE BELOW FURNACE HAND: (test code = 8101) [facility] [employer] LOCATION: (test code = 63785) (NOTE) CPT: (test code = 8140) (NOTE) Roque Lopez AustinVAGINAL PATHOGENS DNA [id number] 00:00:00* Test Item Value Reference Range Interpretation Comme nts ALYSIA SPECIES (test code = ) NEGATIVE G. VAGINALIS (test code = 52432) POSITIVE T. VAGINALIS (test code = 06318) NEGATIVE Roque Lopez AustinHPV HIGH RISK WITH GENOTYPE, [id number] 00:00:00* Test Item Value Reference Range Interpretation Comme nts HPV HIGH RISK INTERP (test c ode = 96062) NEGATIVE HPV 16 (test code = 78223) NEGATIVE HPV 18 (test code = 48116) NEGATIVE HPV, HR, OTHER GENOTYPES (te st code = 78642) NEGATIVE Roque TamayoPAP TEST, THINPREP, [id number] 00:00:00* Test Item Value Reference Range Interpretation Comme nts SOURCE: (test code = 8001) Cervical/Vaginal SLIDES: (test code = 8011) 1 LMP: (test code = 8021) NOT GIVEN SPECIMEN ADEQUACY: (test code = 79194) (NOTE) INTERPRETATION: (test code = 33121) NILM/NO EPITH. ABNORMALITY;SEE BELOW FURNACE HAND: (test code = 8101) Joslyn Hernandez LOCATION: (test code = 30434) (NOTE) CPT: (test code = 8140) (NOTE) Roque Lopez AustinVAGINAL PATHOGENS DNA [id number] 00:00:00* Test Item Value Reference Range Interpretation Comme nts ALYSIA SPECIES (test code = ) NEGATIVE G. VAGINALIS (test code = 07015) POSITIVE T. VAGINALIS (test code = 62343) NEGATIVE Roque Lopez AustinHPV HIGH RISK WITH GENOTYPE, [id number] 00:00:00* Test Item Value Reference Range Interpretation Comme nts HPV HIGH RISK INTERP (test c ode = 63301) NEGATIVE HPV 16 (test code = 10564) NEGATIVE HPV 18 (test code = 01285) NEGATIVE HPV, HR, OTHER GENOTYPES (te st code = 58550) NEGATIVE Roque Lopez AustinCOMPREHENSIVE METABOLIC [id number] 00:00:00* Test Item Value Reference Range Interpretation Comme nts GLUCOSE (test code = 2217) 74 MG/DL BUN (test code = 2208) 19 MG/DL CREATININE (test code = 2214) 1.08 MG/DL eGFR AMER. (test cod e = 80082) 71 ML/MIN/1.73 eGFR NON- AMER. (test code = 26947) 61 ML/MIN/1.73 CALC BUN/CREAT (test code = 2235) 18 RATIO SODIUM (test code = 2231) 139 MEQ/L POTASSIUM (test code = 2228) 3.8 MEQ/L CHLORIDE (test code = 2215) 99 MEQ/L CARBON DIOXIDE (test code = 2206) 29 MEQ/L CALCIUM (test code = 2209) 9.4 MG/DL PROTEIN, TOTAL (test code = 2229) 7.2 G/DL ALBUMIN (test code = 2201) 4.1 G/DL CALC GLOBULIN (test code = 2240) 3.1 G/DL CALC A/G RATIO (test code = 2234) 1.3 RATIO BILIRUBIN, TOTAL (test code = 2207) <0.2 MG/DL ALKALINE PHOSPHATASE (test code = 2204) 106 U/L AST (test code = 2218) 18 U/L ALT (test code = 2219) 14 U/L Roque Jessica HubbardLIPID [id number] 00:00:00* Test Item Value Reference Range Interpretation Comme nts CHOLESTEROL (test code = 2210) 177 MG/DL TRIGLYCERIDES (test code = 2232) 103 MG/DL HDL CHOLESTEROL (test code = 2220) 60 MG/DL CALC LDL CHOL (test code = 2237) 97 MG/DL RISK RATIO LDL/HDL (test cod e = 2238) 1.62 RATIO Roque Lopez RoniCOMPREHENSIVE METABOLIC [id number] 00:00:00* Test Item Value Reference Range Interpretation Comme nts GLUCOSE (test code = 2217) 74 MG/DL BUN (test code = 2208) 19 MG/DL CREATININE (test code = 2214) 1.08 MG/DL eGFR AMER. (test cod e = 17495) 71 ML/MIN/1.73 eGFR NON- AMER. (test code = 77533) 61 ML/MIN/1.73 CALC BUN/CREAT (test code = 2235) 18 RATIO SODIUM (test code = 2231) 139 MEQ/L POTASSIUM (test code = 2228) 3.8 MEQ/L CHLORIDE (test code = 2215) 99 MEQ/L CARBON DIOXIDE (test code = 2206) 29 MEQ/L CALCIUM (test code = 2209) 9.4 MG/DL PROTEIN, TOTAL (test code = 2229) 7.2 G/DL ALBUMIN (test code = 2201) 4.1 G/DL CALC GLOBULIN (test code = 2240) 3.1 G/DL CALC A/G RATIO (test code = 2234) 1.3 RATIO BILIRUBIN, TOTAL (test code = 2207) <0.2 MG/DL ALKALINE PHOSPHATASE (test code = 2204) 106 U/L AST (test code = 2218) 18 U/L ALT (test code = 2219) 14 U/L Roque Lopez HubbardLIPID [id number] 00:00:00* Test Item Value Reference Range Interpretation Comme nts CHOLESTEROL (test code = 2210) 177 MG/DL TRIGLYCERIDES (test code = 2232) 103 MG/DL HDL CHOLESTEROL (test code = 2220) 60 MG/DL CALC LDL CHOL (test code = 2237) 97 MG/DL RISK RATIO LDL/HDL (test cod e = 2238) 1.62 RATIO Roque TamayoCOMPREHENSIVE METABOLIC [id number] 00:00:00* Test Item Value Reference Range Interpretation Comme nts GLUCOSE (test code = 2217) 74 MG/DL BUN (test code = 8) 19 MG/DL CREATININE (test code = 2214) 1.08 MG/DL eGFR AMER. (test cod e = 15816) 71 ML/MIN/1.73 eGFR NON- AMER. (test code = 08934) 61 ML/MIN/1.73 CALC BUN/CREAT (test code = 2235) 18 RATIO SODIUM (test code = 2231) 139 MEQ/L POTASSIUM (test code = 2228) 3.8 MEQ/L CHLORIDE (test code = 2215) 99 MEQ/L CARBON DIOXIDE (test code = 2206) 29 MEQ/L CALCIUM (test code = 2209) 9.4 MG/DL PROTEIN, TOTAL (test code = 2229) 7.2 G/DL ALBUMIN (test code = 2201) 4.1 G/DL CALC GLOBULIN (test code = 2240) 3.1 G/DL CALC A/G RATIO (test code = 2234) 1.3 RATIO BILIRUBIN, TOTAL (test code = 2207) <0.2 MG/DL ALKALINE PHOSPHATASE (test code = 2204) 106 U/L AST (test code = 2218) 18 U/L ALT (test code = 2219) 14 U/L Roque TamayoLIPID [id number] 00:00:00* Test Item Value Reference Range Interpretation Comme nts CHOLESTEROL (test code = 2210) 177 MG/DL TRIGLYCERIDES (test code = 2232) 103 MG/DL HDL CHOLESTEROL (test code = 2220) 60 MG/DL CALC LDL CHOL (test code = 2237) 97 MG/DL RISK RATIO LDL/HDL (test cod e = 2238) 1.62 RATIO Roque TamayoCOMPREHENSIVE METABOLIC [id number] 00:00:00* Test Item Value Reference Range Interpretation Comme nts GLUCOSE (test code = 2217) 74 MG/DL BUN (test code = 2208) 19 MG/DL CREATININE (test code = 2214) 1.08 MG/DL eGFR AMER. (test cod e = 69710) 71 ML/MIN/1.73 eGFR NON- AMER. (test code = 46817) 61 ML/MIN/1.73 CALC BUN/CREAT (test code = 2235) 18 RATIO SODIUM (test code = 2231) 139 MEQ/L POTASSIUM (test code = 2228) 3.8 MEQ/L CHLORIDE (test code = 2215) 99 MEQ/L CARBON DIOXIDE (test code = 2206) 29 MEQ/L CALCIUM (test code = 2209) 9.4 MG/DL PROTEIN, TOTAL (test code = 2229) 7.2 G/DL ALBUMIN (test code = 2201) 4.1 G/DL CALC GLOBULIN (test code = 2240) 3.1 G/DL CALC A/G RATIO (test code = 2234) 1.3 RATIO BILIRUBIN, TOTAL (test code = 2207) <0.2 MG/DL ALKALINE PHOSPHATASE (test code = 2204) 106 U/L AST (test code = 2218) 18 U/L ALT (test code = 2219) 14 U/L Roque Lopez AustinLIPID [id number] 00:00:00* Test Item Value Reference Range Interpretation Comme nts CHOLESTEROL (test code = 2210) 177 MG/DL TRIGLYCERIDES (test code = 2232) 103 MG/DL HDL CHOLESTEROL (test code = 2220) 60 MG/DL CALC LDL CHOL (test code = 2237) 97 MG/DL RISK RATIO LDL/HDL (test cod e = 2238) 1.62 RATIO Roque Tamayo Notes Date/Time Note Provider Source Roque Vieyra [facility]2025-02-24 00:00:00 Roque Vieyra [facility]2024-12-30 00:00:00 Roque Vieyra [facility]2024-06-05 00:00:00 Roque Vieyra [facility]
--- NOTE | 2024-11-04 19:32 | RAD REPORT ---
EXAM:Extremity Venous Uni Ltd HISTORY: Right leg pain TECHNIQUE: Sonographic evaluation right lower extremity performed.Grayscale, color and spectral leland sis performed on all vessels COMPARISON: 2019. FINDINGS: Right common femoral, superficial femoral, greater saphenous, popliteal and posterior tibial veins ar e compressible and demonstrate augmentation. Doppler demonstrates good flow. IMPRESSION: No evidence of deep venous thrombosis involving the right lower extremity.
[2024-11-04 19:49] LABS: Absolute Eosinophils 0.4 K/uL (0-0.5); Absolute Lymphocytes (CBC) 1.3 K/uL (0.7-4.9); Absolute Monocytes 0.5 K/uL (0.1-1.3); Absolute Neutrophil 3.6 K/uL (1.8-8.0); Basophils % 0.4 % (0-1.3); Eosinophils % 6.7 % (0-4.4); Hematocrit 34.2 % (36.0-45.0); Hemoglobin 11.1 g/dL (12.0-15.0); Lymphocytes % 21.7 % (15.3-44.8); MCH 25.9 pg (27.0-35.0); MCHC 32.3 g/dL (32.0-36.0); MCV 80.3 fL (80-100); MPV 7.8 fL (7.6-11.3); Monocytes % 9.3 % (3.3-12.3); Neutrophils % 61.9 % (41.7-73.7); Nucleated Red Blood Cells % 0.1 % (0-0); Platelets 233 thou/uL (152-406); RBC Red Blood Cell Count 4.26 M/uL (3.86-4.86); Red Cell Distribution Width 16.7 % (12.1-15.2)
[2024-11-04 20:05] LABS: Albumin/Globulin Ratio 0.7 (1.1-1.8); Anion Gap 8.1 mEq/L (5.0-15.0); Bilirubin Total 0.3 mg/dL (0.2-1.0); Globulin 4.4 g/dL (2.3-3.5); Potassium 3.1 mEq/L (3.5-5.1); Protein, Total 7.4 g/dL (6.4-8.2)
[2024-11-04 20:06] LABS: PT Prothrombin Time 9.6 SECONDS (10-13.0); Protime INR 0.83
--- NOTE | 2024-11-04 20:51 | ER ---
Nurse's Notes [facility] Name: Munira Kim Age: 48 yrs Sex: Female : 1975 Arrival Date: 11/04/2024 Time: 18:42 Bed 11 Private MD: Diagnosis: Cellulitis of right lower limb-failed outpatient therapy Presentation: 11/04 18:53 Chief complaint: Patient states: R leg redness, hot to touch since Saturday. On oral ll1 antibiotics since Saturday, sent in for further evaluation by Dr. Pinzon. Coronavirus screen: Client denies travel out of the [place] in the last 14 days. At this time, the client does not indicate any symptoms associated with coronavirus-19. Ebola Screen: Patient denies travel to an Ebola-affected area in the 21 days before illness onset. Initial Sepsis Screen: Does the patient meet any 2 criteria? No. Patient's initial sepsis screen is negative. Does the patient have a suspected source of infection? No. Patient's initial sepsis screen is negative. Risk Assessment: Do you want to hurt yourself or someone else? Patient reports no desire to harm self or others. Onset of symptoms was November 01, 2024. 18:53 Method Of Arrival: Ambulatory ll1 18:53 Acuity: EFRAIN 3 ll1 Triage Assessment: 18:55 General: Appears uncomfortable, Behavior is calm, cooperative, appropriate for age. ll1 Pain: Complains of pain in right leg Pain currently is 2 out of 10 on a pain scale. Quality of pain is described as aching. Derm: Reports redness to RLE. Historical: - Allergies: 18:52 meperidine HCl; ll1 18:52 Demerol (Vomiting); ll1 - PMHx: 18:52 lymphedema; ll1 - PSHx: 18:52 gastric bypass (lymphedema); ll1 - Immunization history:: Adult Immunizations up to date. - Infectious Disease History:: Denies. - Social history:: Smoking status: Patient denies any tobacco usage or history of. Screenin:[facility] ED Fall Risk Assessment (Adult) History of falling in the last 3 months, dd2 including since admission No falls in past 3 months (0 pts) Confusion or Disorientation No (0 pts) Intoxicated or Sedated No (0 pts) Impaired Gait No (0 pts) Mobility Assist Device Used Yes (1 pt) Altered Elimination No (0 pt) Score/Fall Risk Level 0 - 2 = Low Risk Oriented to surroundings, Maintained a safe environment, Educated pt \T\ family on fall prevention, incl call for assistance when getting out of bed, Assessed \T\ reinforced patient's understanding of fall precautions, Hourly rounding (assess needs \T\ fall precautionary measures) done. Abuse screen: Denies threats or abuse. Denies injuries from another. Nutritional screening: No deficits noted. Tuberculosis screening: No symptoms or risk factors identified. Assessment: 19:50 General: Appears in no apparent distress. Behavior is calm, cooperative, appropriate dd2 for age. Pain: Complains of pain in right first toe, right second toe and right third toe and right leg Pain does not radiate. Pain currently is 4 out of 10 on a pain scale. Pain began THIS AM. Neuro: Castellanos Agitation-Sedation Scale (RASS): 0 - Alert and Calm Level of Consciousness is awake, alert, obeys commands, Oriented to person, place, time, situation, Appropriate for age. Cardiovascular: No deficits noted. Patient's skin is warm and dry. Respiratory: No deficits noted. Airway is patent Respiratory effort is even, unlabored, Respiratory pattern is regular, symmetrical. GI: Abdomen is non-distended, obese, Abd is soft and non tender X 4 quads. GI: No deficits noted. No signs and/or symptoms were reported involving the gastrointestinal system. : No deficits noted. No signs and/or symptoms were reported regarding the genitourinary system. EENT: No deficits noted. No signs and/or symptoms were reported regarding the EENT system. Derm: Skin is red, TO RT UPPER LEG AND DORSAL FOOT Skin temperature is warm Reports burning, pain that is 4 out of 10 on a pain scale. Musculoskeletal: Circulation, motion, and sensation intact. Range of motion: intact in all extremities. Vital Signs: 18:53 BP 152 / 90; Pulse 100; Resp 17; Temp 98.8; Pulse Ox 95% on R/A; Weight 158.76 kg; ll1 Height 5 ft. 8 in. ; Pain 2/10; 20:15 BP 118 / 75; Pulse 92; Resp 16; Pulse Ox 97% on R/A; dd2 21:00 BP 122 / 84; Pulse 93; Resp 17; Pulse Ox 97% on R/A; dd2 22:00 BP 126 / 69; Pulse 84; Resp 16; Temp 98.2; Pulse Ox 97% on R/A; dd2 23:10 BP 114 / 65; Pulse 82; Resp 16; Pulse Ox 97% on R/A; dd2 18:53 Body Mass Index 53.22 (158.76 kg, 172.72 cm) ll1 18:53 Pain Scale: Adult ll1 [place] Coma Score: 19:50 Eye Response: spontaneous(4). Motor Response: obeys commands(6). Verbal Response: dd2 oriented(5). Total: 15. ED Course: 18:45 Patient arrived in ED. al6 18:52 Arm band placed on Patient placed in an exam room, on a stretcher. ll1 18:53 Coty Nieto, LEXI is Primary Nurse. kc6 18:55 Triage completed. ll1 18:56 Stefany Maurice FNP-C is PHCP. kb 18:56 Josesito Vincent MD is Attending Physician. kb 19:02 MARGARET MCDONALD, LEXI is Primary Nurse. dd2 19:27 US Extremity Venous Unilateral Ltd In Process Unspecified. EDMS 19:32 Initial lab(s) drawn, by me, sent to lab. First set of blood cultures drawn by me. dd2 Patient maintains SpO2 saturation greater than 95% on room air. 19:50 Patient has correct armband on for positive identification. Bed in low position. Call dd2 light in reach. Side rails up X2. Client placed on continuous cardiac and pulse oximetry monitoring. NIBP monitoring applied. equipment monitor phototypesetting on. Door closed. Noise minimized. Warm blanket given. Pillow given. Verbal reassurance given. 20:05 No provider procedures requiring assistance completed. Inserted saline lock: 20 gauge dd2 in left antecubital area, using aseptic technique. Blood collected. Flushed with 10 mL NS. 20:50 Radha Corado MD is Hospitalizing Provider. kb 11/05 00:43 Patient admitted, IV remains in place. dd2 Administered Medications: 11/04 21:25 Drug: vancoMYCIN IVPB 1 grams IVPB once over 2 hrs Route: IVPB; Infused Over: 2 hrs; dd2 Site: left antecubital; 23:48 Follow up: IV Status: Completed infusion; IV Intake: 250ml dd2 Medication: 19:50 VIS not applicable for this client. dd2 Intake: 23:48 IV: 250ml; Total: 250ml. dd2 Outcome: 20:50 Decision to Hospitalize by Provider. kb 11/05 00:43 Admitted to ER Hold. Please see [facility] for further documentation. dd2 Condition: stable Instructed on the need for admit, 02:11 Patient left the ED. vc1 Signatures: Dispatcher [employer] EDStefany Lyles, PIT RECORDER-C NATALIIA-Adrián Boyd RN RN ll1 Rachelle Ackerman RN RN vc1 Coty Nieto RN RN kc6 MARGARET MCDONALD RN RN dd2 Coby Saenz al6
--- NOTE | 2024-11-04 20:51 | EDPHYS ---
Physician Documentation [facility] Name: Munira Kim Age: 48 yrs Sex: Female : 1975 Arrival Date: 11/04/2024 Time: 18:42 Bed 11 Private MD: ED Physician Josesito Vincent HPI: 11/04 21:31 This 48 yrs old Female presents to ER via Ambulatory with complaints of Leg Pain. kb 21:31 Patient is a 48-year-old female with a history of lymphedema who presents for kb cellulitis of right lower extremity that started 3 days ago. States she developed fevers up to 101 5 days ago with general malaise and woke up with the redness, swelling and warmth to right lower extremity on Saturday morning. Was seen by PCP, Dr. Santo, who prescribed antibiotics. Patient called PCP back today because his symptoms were getting worse, she was directed to come to the ER for evaluation and IV antibiotics.. Historical: - Allergies: 18:52 meperidine HCl; ll1 18:52 Demerol (Vomiting); ll1 - PMHx: 18:52 lymphedema; ll1 - PSHx: 18:52 gastric bypass (lymphedema); ll1 - Immunization history:: Adult Immunizations up to date. - Infectious Disease History:: Denies. - Social history:: Smoking status: Patient denies any tobacco usage or history of. ROS: 21:31 Constitutional: As per HPI kb Exam: 21:31 Constitutional: This is a well developed, well nourished patient who is awake, alert, kb and in no acute distress. Head/Face: Normocephalic, atraumatic. ENT: Moist Mucous membranes Cardiovascular: Regular rate Respiratory: Respirations even and unlabored. No increased work of breathing. Talking in full sentences MS/ Extremity: Pulses equal, no cyanosis. Neurovascular intact. Full, normal range of motion. Neuro: Awake and alert, GCS 15, oriented to person, place, time, and situation. 21:31 Skin: cellulitis, that is moderate, on the right nelson, Vital Signs: 18:53 BP 152 / 90; Pulse 100; Resp 17; Temp 98.8; Pulse Ox 95% on R/A; Weight 158.76 kg; ll1 Height 5 ft. 8 in. ; Pain 2/10; 20:15 BP 118 / 75; Pulse 92; Resp 16; Pulse Ox 97% on R/A; dd2 21:00 BP 122 / 84; Pulse 93; Resp 17; Pulse Ox 97% on R/A; dd2 22:00 BP 126 / 69; Pulse 84; Resp 16; Temp 98.2; Pulse Ox 97% on R/A; dd2 23:10 BP 114 / 65; Pulse 82; Resp 16; Pulse Ox 97% on R/A; dd2 18:53 Body Mass Index 53.22 (158.76 kg, 172.72 cm) ll1 18:53 Pain Scale: Adult ll1 [place] Coma Score: 19:50 Eye Response: spontaneous(4). Motor Response: obeys commands(6). Verbal Response: dd2 oriented(5). Total: 15. MDM: 18:56 Medical Screening Exam initiated kb 21:31 Differential diagnosis: Cellulitis, abscess, DVT. Data reviewed: vital signs, nurses kb notes. Consideration of Admission/Observation Patient was admitted/placed on observation. Escalation of care including admission/observation considered. Management of patient was discussed with the following: Hospitalist: Dr. Corado accepts for admission. Counseling: I had a detailed discussion with the patient and/or guardian regarding the historical points, exam findings, and any diagnostic results supporting the discharge/admit diagnosis, lab results, radiology results, the need for further work-up and treatment in the hospital. 11/04 19:02 Order name: Blood Culture Adult (2) kb 11/04 19:02 Order name: CBC with Diff; Complete Time: 19:59 kb 11/04 19:02 Order name: CMP; Complete Time: 20:08 kb 11/04 19:02 Order name: Lactate w/ 2H reflex if indic.; Complete Time: 20:08 kb 11/04 19:02 Order name: Protime (+inr); Complete Time: 20:08 kb 11/04 19:02 Order name: Ptt, Activated; Complete Time: 20:08 kb 11/04 23:31 Order name: Basic Metabolic Panel EDMS 11/04 23:31 Order name: Basic Metabolic Panel EDMS 11/04 23:31 Order name: CBC with Automated Diff EDMS 11/04 23:31 Order name: CBC with Automated Diff EDMS 11/04 23:31 Order name: Procalcitonin EDPA 11/04 23:32 Order name: C-Reactive Protein EDPA 11/04 19:02 Order name: US Extremity Venous Unilateral Ltd; Complete Time: 19:42 kb 11/04 19:02 Order name: Accucheck; Complete Time: 20:05 kb 11/04 19:02 Order name: Cardiac monitoring; Complete Time: 20:05 kb 11/04 19:02 Order name: IV Saline Lock - Large Bore; Complete Time: 20:05 kb 11/04 19:02 Order name: Labs collected and sent; Complete Time: 20:05 kb 11/04 19:02 Order name: O2 Per Protocol; Complete Time: 20:05 kb 11/04 19:02 Order name: O2 Sat Monitoring; Complete Time: 20:05 kb 11/04 19:02 Order name: Vital Signs; Complete Time: 20:05 kb Administered Medications: 21:25 Drug: vancoMYCIN IVPB 1 grams IVPB once over 2 hrs Route: IVPB; Infused Over: 2 hrs; dd2 Site: left antecubital; 23:48 Follow up: IV Status: Completed infusion; IV Intake: 250ml dd2 Disposition: 11/05 07:47 Co-signature as Attending Physician, Josesito Vincent MD I reviewed the patient's care rn provided by the Advanced Practice Provider and agree with the diagnosis and treatment plan. Disposition Summary: 11/04/24 20:50 Hospitalization Ordered Notes: Hospitalization Status: Observation Provider: Radha Corado [facility] Condition: Stable kb Problem: new kb Symptoms: are unchanged kb Bed/Room Type: Standard Room Assignment: 205(11/05/24 00:58) rv1 Diagnosis - Cellulitis of right lower limb - failed outpatient therapy kb Forms: - Medication Reconciliation Form kb - SBAR form kb - Leadership Thank You Letter kb Signatures: Dispatcher [employer] Stefany Esquivel, REPORT MANAGER-C REPORT MANAGER-Ckb Josesito Vincent MD MD rn Lewis, Lynsay, RN RN 1 Laura Garcia rv1 MARGARET MCDONALD RN RN dd2 Corrections: (The following items were deleted from the chart) 11/04 19:03 19:03 BLOOD CULTURE*+BA.LAB.BRZ ordered. [facility] 19: 19:03 CBC+H.LAB.BRZ ordered. EDMS EDMS 19:03 19:03 COMPREHENSIVE METABOLIC PANEL+C.LAB.BRZ ordered. EDMS EDMS 19:03 19:03 LACTATE+C.LAB.BRZ ordered. EDMS EDMS : 19:03 PROTIME (+INR)+COAG.LAB.BRZ ordered. EDMS EDMS 19: 19:03 PTT, ACTIVATED+COAG.LAB.BRZ ordered. EDMS EDMS 11/05 00:58 11/04 20:50 kb rv1
[2024-11-04] MEDS ORDERED: VANCOMYCIN 1 GM/VIAL ONE (21:14)
[2024-11-04] MEDS ORDERED: NA CHLORIDE 0.9% 250 ML ONE (21:14)
[2024-11-04] MEDS ORDERED: ONDANSETRON 4 MG/2 ML VIAL IV PRN (23:27)
--- NOTE | 2024-11-04 23:30 | P.HP ---
Patient History Date of Service: 11/05/24 Reason for admission: Cellulitis History of Present Illness: Is a 48-year-old with a past medical history of lymphedema, obesity, prediabetes, presenting with right erythema secondary to cellulitis. She states last Saturday she felt sick with chills, aches and pains, vomiting, and fever of 101. She thought she was getting the flu. She denies any sick contacts. She states the muscle aches remained until Saturday. On Saturday she began having a migraine. She developed pinching below the right knee. Saturday morning she noticed a rash on her right lower leg. She denies tenderness but does endorse warmth. She went to her provider who gave her cefuroxime. She states the rash did not improve and it prompted her to come in. She has tried compression stockings in the past. Allergies meperidine HCl [From Demerol] Adverse Reaction (Verified 01/23/13 18:35) Nausea/Vomiting Home Medications: Amitriptyline [Elavil*] 100 mg PO BEDTIME 05/31/19 Triamterene/Hydrochlorothiazid [Triamterene-Hctz 37.5-25 mg Tb] 2 tab PO DAILY 05/31/19 Doxycycline Monohydrate 100 mg PO BID #28 tablet 06/02/19 Levofloxacin [Levaquin] 750 mg PO DAILY #10 tablet 06/13/19 - Past Medical/Surgical History Diabetic: No -: Chronic lymphedema -: History recurrent left lower extremity cellulitis -: Obesity, BMI 40 -: Anemia of chronic disease -: Cholecystectomy -: Weight loss surgery Psychosocial/ Personal History: Patient lives at home. - Family History Father -: Heart disease, Stroke Mother -: Heart disease, Hypertension Sister -: Heart disease - Social History Alcohol use: Yes CD- Drugs: No Caffeine use: Yes Review of Systems 10-point ROS is otherwise unremarkable General: As per HPI Integumentary: Rash Physical Examination - Physical Exam General: Alert, In no apparent distress, Obese HEENT: Atraumatic, Normocephalic Neck: Supple Respiratory: Clear to auscultation bilaterally, Normal air movement Cardiovascular: Normal pulses Capillary refill: <2 Seconds Gastrointestinal: Normal bowel sounds Musculoskeletal: No clubbing Integumentary: Rash(es) Neurological: Normal speech - Studies Laboratory Data (last 24 hrs) 11/04/24 11/04/24 11/04/24 19:32 19:32 19:32 WBC 5.80 Hgb 11.1 L Hct 34.2 L Plt Count 233 PT 9.6 L INR 0.83 APTT 27.0 L Sodium 141 Potassium 3.1 L BUN 15 Creatinine 0.96 Glucose 167 H Total Bilirubin 0.3 AST 15 ALT 18 Alkaline Phosphatase 101 Assessment and Plan - Plan Cellulitis Lymphedema Obesity Prediabetes Hypokalemia Continue vancomycin, procalcitonin and CRP pending CBC and BMP in the a.m. Venous duplex negative Sliding scale insulin Replace potassium CBC and BMP in the a.m. DVT prophylaxis with Lovenox - Advance Directives Does patient have a Living Will: No Does patient have a Durable POA for Healthcare: No
[2024-11-04] MEDS: VANCOMYCIN 1 GM in NA CHLORIDE 0.9% 250 ML IVPB ONE (23:45)
[2024-11-05] MEDS ORDERED: D10W 125 ML IV PRN (00:49)
[2024-11-05] MEDS ORDERED: GLUCAGON 1 MG/VIAL IM PRN (00:49)
[2024-11-05] MEDS ORDERED: VANCOMYCIN 1 GM/VIAL ONE (00:59)
[2024-11-05] MEDS ORDERED: NA CHLORIDE 0.9% 250 ML ONE (00:59)
[2024-11-05 02:30] VITALS: BMI 53.8
[2024-11-05 03:20] VITALS: O2SAT 93
[2024-11-05 05:06] LABS: Absolute Eosinophils 0.4 K/uL (0-0.5); Absolute Lymphocytes (CBC) 1.3 K/uL (0.7-4.9); Absolute Monocytes 0.7 K/uL (0.1-1.3); Absolute Neutrophil 2.9 K/uL (1.8-8.0); Basophils % 0.3 % (0-1.3); Eosinophils % 6.8 % (0-4.4); Hematocrit 29.4 % (36.0-45.0); Hemoglobin 9.6 g/dL (12.0-15.0); Lymphocytes % 23.8 % (15.3-44.8); MCH 25.7 pg (27.0-35.0); MCHC 32.7 g/dL (32.0-36.0); MCV 78.6 fL (80-100); Monocytes % 14.2 % (3.3-12.3); Neutrophils % 54.9 % (41.7-73.7); Nucleated Red Blood Cells % 0.1 % (0-0); Platelets 203 thou/uL (152-406); RBC Red Blood Cell Count 3.74 M/uL (3.86-4.86); Red Cell Distribution Width 16.8 % (12.1-15.2)
[2024-11-05] MEDS: INSULIN REGULAR (HUMAN) 100 UNIT/ML SQ SCH (07:30)
[2024-11-05] MEDS: MAXZIDE (HCTZ 25/TRIAMTERENE 37.5MG) TAB PO SCH (08:45)
[2024-11-05] MEDS: VANCOMYCIN 2 GM in NA CHLORIDE 0.9% 500 ML IVPB SCH (08:47)
[2024-11-05] MEDS: ACETAMINOPHEN 500 MG TAB PO PRN (14:06)
--- NOTE | 2024-11-05 14:21 | P.PN ---
Subjective Date of Service: 11/05/24 Chief Complaint: Cellulitis Patient complaining of headache. No recorded fever. She reports no change in right knee erythema compared to yesterday. Physical Examination - Vital Signs Temperature: 98.0 F Blood Pressure: 128/64 Pulse: 79 Respirations: 16 Pulse Ox (%): 96 - Studies Laboratory Data (last 24 hrs) 11/04/24 11/04/24 11/04/24 19:32 19:32 19:32 WBC 5.80 Hgb 11.1 L Hct 34.2 L Plt Count 233 PT 9.6 L INR 0.83 APTT 27.0 L Sodium 141 Potassium 3.1 L BUN 15 Creatinine 0.96 Glucose 167 H Total Bilirubin 0.3 AST 15 ALT 18 Alkaline Phosphatase 101 Assessment And Plan - Plan Physical examination General: Alert and oriented x3, NAD, morbidly obese HEENT: Conjunctiva not pale, anicteric sclera Neck: Supple, no elevated JVD Heart: Heart sounds 1 and 2 normal, regular rhythm, normal rate, no pedal edema Lungs: Clear to auscultation bilaterally, adequate breath sounds bilaterally, no rhonchi or crackles. Abdomen: Soft, nondistended, nontender, normal bowel sounds. Extremities: No tenderness, no deformity Skin: Normal skin turgor, erythematous rash on the anterior right knee. Neuro: No focal motor deficit. Normal speech. Psychiatry: Normal mood, no agitation. Diagnosis Cellulitis Lymphedema Obesity Prediabetes Hypokalemia Plan: Cellulitis of right lower extremity Continue vancomycin. Add IV Rocephin. Procalcitonin negative CRP moderately elevated. Keep right lower extremity elevated Morbid obesity Bilateral lower extremity lymphedema Follow-up outpatient for lymphedema wrap. Hypokalemia Correct electrolytes as needed. DVT prophylaxis with Lovenox
[2024-11-05] MEDS ORDERED: ACETAMINOPHEN 500 MG TAB PO PRN (14:23)
[2024-11-05] MEDS: ENOXAPARIN 40 MG/0.4 ML SQ SCH (17:31)
[2024-11-05] MEDS ORDERED: VANCOMYCIN 2 GM in NA CHLORIDE 0.9% 500 ML IVPB SCH (19:00)
[2024-11-05] MEDS: AMITRIPTYLINE 50 MG TAB PO SCH (20:40)
[2024-11-06] MEDS: MORPHINE 2 MG/ML SYR IV PRN (06:33)
--- NOTE | 2024-11-06 13:38 | P.PN ---
Subjective Date of Service: 11/06/24 Chief Complaint: Cellulitis Patient has no new complaints today No recorded fever. Right knee erythema is slowly improving. Physical Examination - Vital Signs Temperature: 98.3 F Blood Pressure: 126/76 Pulse: 81 Respirations: 16 Pulse Ox (%): 97 Assessment And Plan - Plan Physical examination General: Alert and oriented x3, NAD, morbidly obese HEENT: Conjunctiva not pale, anicteric sclera Neck: Supple, no elevated JVD Heart: Heart sounds 1 and 2 normal, regular rhythm, normal rate, no pedal edema Lungs: Clear to auscultation bilaterally, adequate breath sounds bilaterally, no rhonchi or crackles. Abdomen: Soft, nondistended, nontender, normal bowel sounds. Extremities: No tenderness, no deformity Skin: Normal skin turgor, erythematous rash on the anterior right knee. Neuro: No focal motor deficit. Normal speech. Psychiatry: Normal mood, no agitation. Diagnosis Cellulitis Lymphedema Obesity Prediabetes Hypokalemia Plan: Cellulitis of right lower extremity Continue vancomycin. IV Rocephin. Procalcitonin negative CRP moderately elevated. Keep right lower extremity elevated Morbid obesity Bilateral lower extremity lymphedema Follow-up outpatient for lymphedema wrap. Hypokalemia Correct electrolytes as needed. 11/06 Right knee erythema is slowly improving. I contacted patient's PCP Dr. Ibarra who confirmed patient had significant fever and patient has been experiencing recurrent cellulitis given her lower extremity lymphedema. Continue IV antibiotics for 1 more day and then transition to oral Bactrim and doxycycline. Analgesics as needed for pain. Keep right lower extremity elevated. DVT prophylaxis with Lovenox
[2024-11-06] MEDS: POTASSIUM CL SA 10 MEQ TAB PO SCH (14:14)
[2024-11-06] MEDS: CEFTRIAXONE 1,000 MG in NA CHLORIDE 0.9% 50 ML IVPB SCH (17:19)
[2024-11-07] MEDS ORDERED: POTASSIUM CL SA 10 MEQ TAB PO ONE (08:37)
[2024-11-07] MEDS: POTASSIUM CL SA 10 MEQ TAB PO ONE (08:41)
[2024-11-07] MEDS: VANCOMYCIN 2 GM in NA CHLORIDE 0.9% 500 ML IVPB SCH (10:01)
--- NOTE | 2024-11-07 11:44 | P.DS ---
Admission Date: 11/04/24 Discharge Date: 11/07/24 Disposition: ROUTINE DISCHARGE Discharge Condition: FAIR Reason for Admission: Cellulitis Brief History of Present Illness: 48-year-old woman with a past medical history of lymphedema, obesity, prediabetes, presented with right knee erythema. Symptoms associated with fever and general malaise. She took cefuroxime prescribed by her PCP without improvement. Her PCP directed her to the emergency department for further evaluation. Patient evaluated in the ED, no leukocytosis or sepsis. Patient was admitted for further management of lower extremity cellulitis that did not respond to outpatient antibiotics. Hospital Course: Diagnosis Cellulitis Lymphedema Obesity Prediabetes Hypokalemia Patient admitted to the medical floor and the following medical problems addressed: Cellulitis of right lower extremity Patient's right knee erythema improved with IV vancomycin and Rocephin Procalcitonin negative CRP moderately elevated. Case discussed with patient's PCP Dr. Ibarra who concurred with above treatment and discharged with oral Bactrim in addition to the cefuroxime she was already prescribed before presentation. Patient has been afebrile, she is ambulatory, right knee erythema significantly improved. She is prescribed 7 more days of oral Bactrim to take in addition to the cefuroxime. Morbid obesity Bilateral lower extremity lymphedema Follow-up outpatient for lymphedema wrap. Hypokalemia Hypokalemia corrected Vital Signs/Physical Exam: Temp Pulse Resp BP Pulse Ox 97.7 F 78 18 123/75 94 11/07/24 08:00 11/07/24 08:00 11/07/24 08:00 11/07/24 08:00 11/07/24 08:00 General: Alert, In no apparent distress, Obese HEENT: Mucous membr. moist/pink Neck: Supple, JVD not distended Respiratory: Clear to auscultation bilaterally, Normal air movement Cardiovascular: No edema, Regular rate/rhythm, Normal S1 S2 Gastrointestinal: Normal bowel sounds, Soft and benign, Non-distended, No tenderness Musculoskeletal: No swelling Integumentary: No rashes, No cyanosis Neurological: Normal strength at 5/5 x4 extr Laboratory Data at Discharge: WBC 5.30 thou/uL (4.3-10.9) 11/05/24 04:47 Hgb 9.6 g/dL (12.0-15.0) L D 11/05/24 04:47 Hct 29.4 % (36.0-45.0) L 11/05/24 04:47 Plt Count 203 thou/uL (152-406) 11/05/24 04:47 PT 9.6 SECONDS (10-13.0) L 11/04/24 19:32 INR 0.83 11/04/24 19:32 APTT 27.0 SECONDS (27.2-37.4) L 11/04/24 19:32 Sodium 141 mEq/L (136-145) 11/05/24 04:49 Potassium 3.8 mEq/L (3.5-5.1) 11/06/24 20:50 BUN 13 mg/dL (7-18) 11/05/24 04:49 Creatinine 0.70 mg/dL (0.55-1.02) 11/05/24 04:49 Glucose 91 mg/dL (74-106) 11/05/24 04:49 Total Bilirubin 0.3 mg/dL (0.2-1.0) 11/04/24 19:32 AST 15 U/L (15-37) 11/04/24 19:32 ALT 18 U/L (13-56) 11/04/24 19:32 Alkaline Phosphatase 101 U/L (45-117) 11/04/24 19:32 Home Medications: Amitriptyline [Elavil*] 50 mg PO BEDTIME 05/31/19 Triamterene/Hydrochlorothiazid [Triamterene-Hctz 37.5-25 mg Tb] 1 tab PO DAILY 05/31/19 Fluticasone [Flonase 50MCG Nasal Ringling*] 1 spr YAYA DAILYPRN PRN 11/05/24 Sulfamethoxazole/Trimethoprim [Bactrim Ds Tablet] 1 each PO BID #14 tab 11/07/24 cefuroxime axetiL [Cefuroxime] 500 mg PO BID #14 tab 11/07/24 New Medications: Sulfamethoxazole/Trimethoprim [Bactrim Ds Tablet] 1 each PO BID #14 tab cefuroxime axetiL [Cefuroxime] 500 mg PO BID #14 tab Diet: AHA Activity: Ad gordo Followup: Thomas Pittman MD [Primary Care Provider] - 1 Week Time spent managing pt's care (in minutes): 32
[2024-11-07 12:07] VITALS: BP 122/74; TEMP 97.8
== END 2024-11-07 14:15 | disposition home or self-care (01) | DRG 603 ==
LOC: ER 18:42 → ERHOLD 23:27 → 2ND 11-05 01:47
PROVIDERS: ADMIT Family Medicine; ATTEND Internal Medicine
DX: L03.115 Cellulitis of right lower limb (principal); Z68.1 Body mass index [BMI] 19.9 or less, adult; E66.89 Other obesity not elsewhere classified; E78.5 Hyperlipidemia, unspecified; E87.6 Hypokalemia; Z98.84 Bariatric surgery status
CPT/HCPCS: 36415; 80048; 80053; 80202; 82947; 83605; 84132; 84145; 85025; 85610; 85730; 86140; 87040; 93971; 96365; 96366; 99285; J0696; J1650; J2270; J3370; J7040; J7050